=== PATIENT | female | born 1975 | race Caucasian/White ===

== ENCOUNTER 2020-04-01 08:15 | Outpatient (REF) | payer OTHER, SELFPAY ==
[2020-04-01 08:40] LABS: COVID-19 Test Negative (Negative); IDNOW Serial# 55D5AD1C
== END 2020-04-01 08:16 | disposition home or self-care (01) ==
LOC: HO.EMPCOV 08:15
PROVIDERS: PCP Family Medicine; Visit Provider Internal Medicine
DX: Z20.828 Contact with and (suspected) exposure to other viral communicable diseases (principal)
CPT/HCPCS: 87635; C9803

== ENCOUNTER 2020-04-18 12:27 | Outpatient (REF) | payer OTHER, SELFPAY ==
[2020-04-18 14:17] LABS: COVID-19 Test Negative (Negative)
== END 2020-04-18 12:28 | disposition home or self-care (01) ==
LOC: HO.EMPCOV 12:27
PROVIDERS: PCP Family Medicine; Visit Provider Internal Medicine
DX: Z20.828 Contact with and (suspected) exposure to other viral communicable diseases (principal)
CPT/HCPCS: 87635; C9803

== ENCOUNTER 2020-04-25 08:21 | Outpatient (REF) | payer OTHER, SELFPAY ==
[2020-04-25 08:44] LABS: COVID-19 Test Negative (Negative)
== END 2020-04-25 08:22 | disposition home or self-care (01) ==
LOC: HO.EMPCOV 08:21
PROVIDERS: PCP Family Medicine; Visit Provider Internal Medicine
DX: Z20.828 Contact with and (suspected) exposure to other viral communicable diseases (principal)
CPT/HCPCS: 87635; C9803

== ENCOUNTER 2020-05-05 08:05 | Outpatient (REF) | payer OTHER, SELFPAY ==
[2020-05-05 08:22] LABS: COVID-19 Test Negative (Negative); IDNOW Serial# 55D5AD1C
== END 2020-05-05 08:06 | disposition home or self-care (01) ==
LOC: HO.EMPCOV 08:05
PROVIDERS: Visit Provider Internal Medicine
DX: Z20.828 Contact with and (suspected) exposure to other viral communicable diseases (principal)
CPT/HCPCS: 36415; 87635; C9803

== ENCOUNTER 2020-05-05 10:14 | Outpatient (REF) | payer OTHER, SELFPAY ==
[2020-05-05 12:17] LABS: Influenza A PCR NEGATIVE (Negative); Influenza B PCR NEGATIVE (Negative); Resp Syncy Virus RNA Qual PCR NEGATIVE (Negative); SARS COV2 PCR INHOUSE NEGATIVE (Negative)
== END 2020-05-05 10:15 | disposition home or self-care (01) ==
LOC: HO.LAB 10:14
PROVIDERS: Visit Provider Nurse Practitioner Family
DX: J06.9 Acute upper respiratory infection, unspecified (principal); Z20.822 Contact with and (suspected) exposure to COVID-19
CPT/HCPCS: 0241U; 36415

== ENCOUNTER 2020-07-15 11:30 | Outpatient (REF) | payer OTHER, SELFPAY ==
[2020-07-15 13:09] LABS: COVID-19 Test Negative (Negative); IDNOW Serial# 55D5AD1C
== END 2020-07-15 11:31 | disposition home or self-care (01) ==
LOC: HO.EMPCOV 11:30
PROVIDERS: Visit Provider Internal Medicine
DX: Z20.822 Contact with and (suspected) exposure to COVID-19 (principal)
CPT/HCPCS: 36415; 87635; C9803

== ENCOUNTER 2020-08-25 08:25 | Outpatient (REF) | payer OTHER, SELFPAY ==
[2020-08-25 09:40] LABS: COVID-19 Test Negative (Negative)
== END 2020-08-25 08:26 | disposition home or self-care (01) ==
LOC: HO.EMPCOV 08:25
PROVIDERS: Visit Provider Internal Medicine
DX: Z20.822 Contact with and (suspected) exposure to COVID-19 (principal)
CPT/HCPCS: 36415; 87635; C9803

== ENCOUNTER 2020-08-26 13:25 | Outpatient (REF) | payer OTHER, SELFPAY ==
--- NOTE | ~2020-08-26 | XR_ITS ---
EXAMINATION: XR CHEST CLINICAL INFORMATION: Viral infection COMPARISON: Previous chest x-ray May 2015 TECHNIQUE: 2 views of the chest were obtained. FINDINGS: The cardiac and mediastinal contours are normal. The lungs are clear. There is no pleural effusion or pneumothorax. There is a mild thoracolumbar scoliosis. XR/XR chest 2V IMPRESSION: Unremarkable examination.
[2020-08-26 16:19] LABS: MANUAL DIFF FLAG NO
[2020-08-26 16:31] LABS: Basophils Percent Auto 0.4 % (0-2); Eosinophils Absolute Auto 0.3 X10*3/uL (0.0-0.4); Eosinophils Percent Auto 2.7 % (0-4); Hematocrit 44.2 % (37-47); Hemoglobin 15.2 g/dl (12.0-16.0); Imm Gran Abs Auto 0.05 X10*3/uL (0.00-0.03); Imm Gran Pct Auto 0.5 % (0.0-0.4); Lymphocytes Absolute Auto 2.1 X10*3/uL (1.2-4.9); Mean Corpuscular HGB Conc 34.4 g/dl (31.0-35.0); Mean Corpuscular Hemoglobin 33.9 pg (27.0-33.0); Mean Corpuscular Volume 98.4 fL (80-98); Mean Platelet Volume 12.2 fL (9.4-12.3); Monocytes Absolute Auto 0.7 X10*3/uL (0.1-1.2); Monocytes Percent Auto 7.2 % (2-11); Neutrophils Absolute Auto 6.4 X10*3/uL (2.0-8.3); Neutrophils Percent Auto 67.2 % (45-73); Platelet Count 296 X10*3/uL (160-400); Red Blood Count 4.49 X10*6/uL (4.20-5.50); Red Cell Distribution Width 12.2 % (11.0-16.0); White Blood Count 9.6 X10*3/uL (4.8-10.8)
[2020-08-26 17:00] LABS: Alanine Aminotransferase 42 U/L (0-31); Albumin Level 4.5 g/dL (3.5-5.0); Alkaline Phosphatase 109 U/L (39-117); Anion Gap 15 (12-20); Aspartate Amino Transferase 32 U/L (5-31); Bilirubin Total 0.7 mg/dL (0.0-1.0); Blood Urea Nitrogen 8 mg/dL (9-16); Calcium 9.8 mg/dL (8.4-10.2); Carbon Dioxide 25 mmol/L (22-29); Chloride 104 mmol/L (96-108); Estimated Glomerular Filt Rate > 60; Glucose Random 82 mg/dL (60-115); Potassium 4.3 mmol/L (3.3-5.1); Sodium 140 mmol/L (135-145); Total Protein 7.2 g/dL (6.5-8.0)
[2020-08-26 17:20] LABS: TSH reflex Free T4 1.25 uIU/mL (0.32-4.0)
[2020-08-27 08:49] LABS: Monotest Negative (Negative)
== END 2020-08-26 13:26 | disposition home or self-care (01) ==
LOC: HO.HMGCX 13:25
PROVIDERS: PCP Family Medicine; Visit Provider Hospitalist
DX: Z20.822 Contact with and (suspected) exposure to COVID-19 (principal); B34.9 Viral infection, unspecified
CPT/HCPCS: 36415; 71046; 80053; 84443; 85025; 86308; U0003; U0005

== ENCOUNTER 2020-11-03 08:35 | Outpatient (REF) | payer OTHER, SELFPAY ==
--- NOTE | ~2020-11-03 | XR_ITS ---
EXAMINATION: XR CHEST CLINICAL INFORMATION: J06.9 - Acute upper respiratory infection, unspecified COMPARISON: Chest radiographs 08/26/2020, 06/10/2015 TECHNIQUE: 2 views of the chest were obtained. FINDINGS: The lungs are clear. The vascularity is normal. There is no airspace consolidation or groundglass opacity. The costophrenic sulci are well-defined. The heart is normal in size. The hilar and mediastinal contours are unremarkable. There is gentle levocurvature again noted lower thoracic spine. XR/XR chest 2V IMPRESSION: Unremarkable examination.
== END 2020-11-03 08:36 | disposition home or self-care (01) ==
LOC: HO.HMGCX 08:35
PROVIDERS: PCP Family Medicine; Visit Provider Nurse Practitioner Family
DX: J06.9 Acute upper respiratory infection, unspecified (principal)
CPT/HCPCS: 71046

== ENCOUNTER 2020-11-15 12:28 | Outpatient (REF) | payer OTHER, SELFPAY ==
[2020-11-16 13:47] LABS: Immunoglobulin A 246 mg/dL (47-310)
[2020-11-16 17:16] LABS: Transglutaminase Ab IgG 1 U/mL; Transglutaminase IgA 1 U/mL
[2020-11-17 17:21] LABS: Gliadin Deamidated IgA Ab 3 Units; Gliadin Deamidated IgG Ab 1 Units
[2020-11-20 11:35] LABS: Endomysial IgA Antibody Negative (Negative)
== END 2020-11-15 12:29 | disposition home or self-care (01) ==
LOC: HO.LAB 12:28
PROVIDERS: PCP Family Medicine; Visit Provider Internal Medicine
DX: K58.0 Irritable bowel syndrome with diarrhea (principal)
CPT/HCPCS: 36415; 82784; 83516; 86255; 86256

== ENCOUNTER 2020-11-22 09:43 | Outpatient (REF) | payer OTHER, SELFPAY ==
--- NOTE | ~2020-11-22 | US_ITS ---
EXAMINATION: US ABDOMEN COMPLETE CLINICAL INFORMATION: Generalized abdominal discomfort. COMPARISON: CT abdomen and pelvis 05/18/2019. TECHNIQUE: Real-time imaging of the abdominal viscera. FINDINGS: PANCREAS: Normal. ABDOMINAL AORTA: The proximal, mid, and distal segments are normal in caliber. INFERIOR VENA CAVA: Visualized portions are normal. LIVER: The liver is normal in size. The liver contour is normal. Liver echotexture is increased probably representing fatty infiltration. No focal hepatic lesion. There is no intrahepatic biliary duct dilatation seen. GALLBLADDER: The gallbladder is physiologically distended. Multiple mobile gallstones are present. No evidence of gallbladder wall thickening or pericholecystic fluid. COMMON BILE DUCT: Normal in caliber measuring 0.4 cm in diameter. RIGHT KIDNEY: Normal. No hydronephrosis. No renal calculi or focal parenchymal lesions. The kidney measures 10.2 cm in maximum dimension. LEFT KIDNEY: Normal. No hydronephrosis. No renal calculi or focal parenchymal lesions. The kidney measures 9.5 cm in maximum dimension. SPLEEN: Normal. The spleen measures 9.8 cm in maximum dimension. FREE FLUID: None. US/US abdomen complete IMPRESSION: Echogenic liver probably representing fatty infiltration. Gallstones.
== END 2020-11-22 09:44 | disposition home or self-care (01) ==
LOC: HO.HMGCX 09:43
PROVIDERS: PCP Family Medicine; Visit Provider Internal Medicine
DX: R10.84 Generalized abdominal pain (principal)
CPT/HCPCS: 76700

== ENCOUNTER 2020-12-16 09:58 | Day surgery (SDC) | payer OTHER, SELFPAY ==
--- NOTE | 2020-12-15 09:18 | P.CONAN_ITS ---
Documented by User: Basilia Padilla NP 12/15/20 09:18 HPI - Anesthesia Eval Consult details Narrative: 45yo F for Upper Endoscopy and Colonoscopy [facility] Active Problems Active Problems: All Active Problems (Updated 12/08/20 @ 14:24 by Teresita Robbins, BETSY) Upper respiratory infection (Acute) Rash and nonspecific skin eruption (Acute) Viral syndrome (Acute) Past Medical History Medical History Anxiety Asthma GERD (gastroesophageal reflux disease) Helicobacter pylori antibody positive Urinary incontinence Surgical History Surgical History History of cryosurgery History of tubal ligation Social History Social History (Updated 12/08/20 @ 14:25 by Teresita Robbins, BETSY) Patient Tobacco Use Status: Current everyday Tobacco user Tobacco use type: Cigarette Cigarettes Per Day: 10 Advance Directives: No Advance Directives Information Provided: Yes Meds Allergies Allergy/AdvReac Type Severity Reaction Status Date / Time No Known Allergies Allergy Unknown Verified 12/16/20 10:32 [No Known Allergies*] Home Medications Medication Instructions Recorded Confirmed Last Taken Type cholecalciferol (vitamin D3) 25 1 cap PO DAILY 12/08/20 12/08/20 Unknown History mcg (1,000 unit) capsule (Vitamin D3) clonazepam 0.5 mg tablet 1 tab PO DAILY 12/08/20 12/08/20 Unknown History fluoxetine 20 mg capsule 1 cap PO QAM 12/08/20 12/08/20 Unknown History omeprazole 20 mg capsule,delayed 1 cap PO DAILY 12/08/20 12/08/20 Unknown History release Exam Exam Date and Time: December 15, 2020 0918 Assessment and Plan Assessment Anesthesia Assessment: Chart Reviewed Documented by User: Cecelia Woodward MD 12/16/20 10:38 [facility] Past Medical History Medical History Anxiety Asthma GERD (gastroesophageal reflux disease) Helicobacter pylori antibody positive Urinary incontinence Family History Family history of problems with anesthesia: No Surgical History Surgical History History of cryosurgery History of tubal ligation History of Problems with Anesthesia: No Social History Social History (Updated 12/08/20 @ 14:25 by Terseita Robbins RN) Patient Tobacco Use Status: Current everyday Tobacco user Tobacco use type: Cigarette Cigarettes Per Day: 10 Advance Directives: No Advance Directives Information Provided: Yes Meds Allergies Allergy/AdvReac Type Severity Reaction Status Date / Time No Known Allergies Allergy Unknown Verified 12/16/20 10:32 [No Known Allergies*] Home Medications Medication Instructions Recorded Confirmed Last Taken Type cholecalciferol (vitamin D3) 25 1 cap PO DAILY 12/08/20 12/08/20 Unknown History mcg (1,000 unit) capsule (Vitamin D3) clonazepam 0.5 mg tablet 1 tab PO DAILY 12/08/20 12/08/20 Unknown History fluoxetine 20 mg capsule 1 cap PO QAM 12/08/20 12/08/20 Unknown History omeprazole 20 mg capsule,delayed 1 cap PO DAILY 12/08/20 12/08/20 Unknown History release Exam Airway Mallampati Class: II TM Dist: >3cm Neck ROM: Full Heart: rrr Lungs: cta Assessment and Plan Assessment Anesthesia Assessment: Anesthesia Plan Discussed and Chart Reviewed Final Anesthetic Review Family History of Problems with Anesthesia: No History of Problems with Anesthesia: No NPO: Yes ASA Class: II Final Preanesthetic Review: No Changes in Pt Med Stat and Consent Obtained/Reviewed Patient Risk: Intermediate Procedure Risk: Intermediate Anesthetic Plan Anesthetic Plan: MAC: Disposition: Standard PACU
[2020-12-16 10:32] VITALS: BP 131/84; PULSE 80; RESP 16; TEMP 36.5; O2SAT 98
[2020-12-16 10:41] VITALS: BMI 30.1
[2020-12-16] MEDS: Lactated Ringers 1,000 ML 100 ML IVCONT (10:46)
[2020-12-16 12:40] VITALS: BP 118/77; PULSE 78; RESP 16; TEMP 36.4; O2SAT 98
--- NOTE | 2020-12-16 12:45 | P.BOP_ITS ---
Brief Operative Note Date of Service: 12/16/20 Pre-op diagnosis: GERD, diarrhea Post-op diagnosis: other (Hiatal hernia, gastritis,internal hemorrhoids) Procedure: EGD with biopsies and Colonoscopy to the cecum with biopsies Surgeon: Fabio Cai Anesthesia: MAC Was an Plant Maintenance Engineer used for this Procedure?: No Estimated blood loss (mL): 5.0 Pathology: other (A. Descending duodenum B. Gastric antrum C. EG Junction at 35cm D. Ascending colon E. Descending colon) Condition: stable Disposition: PACU
[2020-12-16 12:55] VITALS: BP 123/81; PULSE 72; RESP 18; TEMP 36.7; O2SAT 100
--- NOTE | 2021-01-05 16:32 | OP_ITS ---
SURGEON: Fabio Cai MD INDICATIONS: The patient presents for evaluation of gastroesophageal reflux, abdominal discomfort, and irregular bowel movements with associated diarrhea. Full consent has been obtained from her for both procedures, including risks of bleeding and perforation. PREOPERATIVE DIAGNOSIS: POSTOPERATIVE DIAGNOSIS: PROCEDURE PERFORMED: Esophagogastroduodenoscopy with biopsies and colonoscopy to cecum and terminal ileum with biopsies. ESTIMATED BLOOD LOSS: COMPLICATIONS: ANESTHESIA: Monitored anesthesia care. ASSISTANTS: SPECIMENS: PREOPERATIVE DIAGNOSES: Gastroesophageal reflux, abdominal discomfort, irregular bowel movements with associated diarrhea. POSTOPERATIVE DIAGNOSES: Gastroesophageal reflux, abdominal discomfort, irregular bowel movements with associated diarrhea, hiatal hernia, rule out celiac disease, mild gastritis, rule out microscopic colitis, internal hemorrhoids. DESCRIPTION OF PROCEDURE: The patient was placed in the left lateral decubitus position. The Olympus video gastroscope was passed in the posterior oropharynx and upper esophagus under direct vision. The scope was passed slowly into the distal esophagus. The gastroesophageal junction appeared at 35 cm. There was some slight irregularity consistent with chronic reflux, but no evidence of esophagitis nor any definitive evidence of Andersen's mucosa. The scope entered into the stomach. There was a small hiatal hernia. The scope was advanced to pylorus and the duodenum was cannulated to the descending portion. The duodenum including the bulb was carefully inspected and appeared normal. Biopsies were obtained from the second and third portions of duodenum. The scope was withdrawn back into the stomach. The gastric antrum had some mild changes of erythema and edema in the pre-pyloric antrum. There was good peristalsis. Biopsies were obtained. There was no ulceration nor mass. The scope was retroflexed visualizing the proximal stomach carefully, which appeared normal, without any sign of mass or ulceration. The scope was straightened out and withdrawn back into the esophagus. Biopsies were obtained at the EG junction at 35 cm. Proximal to that, the esophageal mucosa appeared normal. The scope was withdrawn from the patient. She was turned around for colonoscopy. The digital rectal exam revealed no abnormalities. The Olympus video pediatric colonoscope was entered into the rectum and advanced easily to the cecum. Once in the cecum, I did identify normal-appearing cecal pouch with appendiceal orifice and a normal-appearing ileocecal valve. The terminal ileum was cannulated and appeared normal. The scope was withdrawn back in the colon. The entire cecum and ileocecal valve appeared normal. The scope was slowly withdrawn assessing all mucosal surfaces carefully. Preparation was excellent. I did not visualize any sign of polyps, colitis, nor angiodysplasia. Random biopsies were obtained in the ascending and descending colon. In the rectum, scope was retroflexed visualizing internal hemorrhoids, but no other pathology. The rectal mucosa appeared normal. The scope was straightened out and withdrawn from the patient. She tolerated the procedures well and was returned to the recovery area in stable condition. IMPRESSION: 1. Hiatal hernia, gastroesophageal reflux. 2. Mild gastritis. 3. Rule out celiac disease. 4. Rule out microscopic colitis. 5. Internal hemorrhoids. PLAN: The results of the biopsies will be checked. She has been advised to continue her omeprazole for reflux and dicyclomine as needed for irritable bowel symptoms and abdominal cramps. Even if H pylori is present on the gastric biopsies, I would not necessarily treat that at this time. She does have an appointment next week to see Dr. Bustillos about her gallstones and to get his opinion as to whether she should have a cholecystectomy in regard to intermittent abdominal discomfort as well. She was advised to see me in the fall for a followup visit. She was advised not to use any aspirin and NSAIDs for 1 week. This has been discussed with her . MD JHOAN Madsen/HERSON / [id number]
== END 2020-12-16 13:35 | disposition home or self-care (01) ==
PROVIDERS: PCP Family Medicine; Visit Provider Internal Medicine
PROC: (CPT 45380; principal; 2020-12-16 11:20)
DX: K58.0 Irritable bowel syndrome with diarrhea (principal); K64.8 Other hemorrhoids; K21.9 Gastro-esophageal reflux disease without esophagitis; K29.50 Unspecified chronic gastritis without bleeding; K44.9 Diaphragmatic hernia without obstruction or gangrene; J45.909 Unspecified asthma, uncomplicated; Z79.899 Other long term (current) drug therapy; F17.210 Nicotine dependence, cigarettes, uncomplicated; Z98.51 Tubal ligation status
CPT/HCPCS: 45380; 43239; 88305; 88342

== ENCOUNTER → 2020-12-21 14:56 | Outpatient (BNVA) | payer OTHER, SELFPAY | PROVIDERS: PCP Family Medicine; Referring Provider Family Medicine; Visit Provider Surgery ==

== ENCOUNTER → 2021-06-22 09:56 | Outpatient (BNVA) | payer OTHER, SELFPAY | PROVIDERS: PCP Family Medicine; Referring Provider Family Medicine; Visit Provider Surgery ==

== ENCOUNTER 2021-07-28 08:01 | Day surgery (SDC) | payer OTHER, SELFPAY ==
[2021-07-21 19:39] VITALS: BMI 30.1
--- NOTE | 2021-07-26 14:16 | P.CONAN_ITS ---
Documented by User: Basilia Padilla NP 07/26/21 14:16 HPI - Anesthesia Eval Consult details Narrative: 46yo F for Cholecystectomy Laparoscopic, Poss Open PMFSH Active Problems Active Problems: All Active Problems (Updated 07/21/21 @ 19:37 by Eleanor De Oliveira RN) Upper respiratory infection (Acute) Rash and nonspecific skin eruption (Acute) Viral syndrome (Acute) Gallstones (Acute) Past Medical History Medical History (Updated 07/21/21 @ 19:37 by Eleanor De Oliveira, RN) Anxiety Asthma Back pain Depression Gallstones GERD (gastroesophageal reflux disease) Helicobacter pylori antibody positive Urinary incontinence Family History Family history of problems with anesthesia: No Surgical History Surgical History History of cryosurgery History of tubal ligation History of Problems with Anesthesia: No Social History Social History Patient Tobacco Use Status: Current everyday Tobacco user Tobacco use type: Cigarette Cigarette Packs Per Day: 0.5 Cigarettes Per Day: 10.0 Years Smoked: 30 Smoked in Last 30 Days: Yes Use of substances other than those prescribed or required for medical reasons: No Are you DNR?: No Advance Directives: No Advance Directives Information Provided: No Advance Directives on File: No Recently lost weight without trying: No Nutrition Risks: No Nutritional Risk Patient : No Meds Allergies Allergy/AdvReac Type Severity Reaction Status Date / Time No Known Allergies Allergy Unknown Verified 06/22/21 10:07 [No Known Allergies*] Home Medications Medication Instructions Recorded Confirmed Last Taken Type cholecalciferol (vitamin D3) 25 1 cap PO DAILY 12/08/20 07/21/21 Unknown History mcg (1,000 unit) capsule (Vitamin D3) clonazepam 0.5 mg tablet 1 tab PO DAILY 12/08/20 07/21/21 07/28/21 History fluoxetine 20 mg capsule 1 cap PO QAM 12/08/20 07/21/21 Unknown History omeprazole 20 mg capsule,delayed 1 cap PO DAILY 12/08/20 07/21/21 Unknown History release metronidazole 500 mg tablet 1 tab PO BID 07/28/21 07/28/21 07/28/21 History Exam Exam Date and Time: July 26, 2021 141 Height,Weight and Vital Signs: Height 5 ft 3 in Weight 77.111 kg Assessment and Plan Assessment Anesthesia Assessment: Chart Reviewed Final Anesthetic Review Family History of Problems with Anesthesia: No History of Problems with Anesthesia: No Documented by User: Donna Paz MD 07/28/21 08:29 PENDING SALE TO [facility] Past Medical History Medical History (Updated 07/21/21 @ 19:37 by Eleanor De Oliveira RN) Anxiety Asthma Back pain Depression Gallstones GERD (gastroesophageal reflux disease) Helicobacter pylori antibody positive Urinary incontinence Surgical History Surgical History History of cryosurgery History of tubal ligation Social History Social History Patient Tobacco Use Status: Current everyday Tobacco user Tobacco use type: Cigarette Cigarette Packs Per Day: 0.5 Cigarettes Per Day: 10.0 Years Smoked: 30 Smoked in Last 30 Days: Yes Use of substances other than those prescribed or required for medical reasons: No Are you DNR?: No Advance Directives: No Advance Directives Information Provided: No Advance Directives on File: No Recently lost weight without trying: No Nutrition Risks: No Nutritional Risk Patient : No Meds Allergies Allergy/AdvReac Type Severity Reaction Status Date / Time No Known Allergies Allergy Unknown Verified 06/22/21 10:07 [No Known Allergies*] Home Medications Medication Instructions Recorded Confirmed Last Taken Type cholecalciferol (vitamin D3) 25 1 cap PO DAILY 12/08/20 07/21/21 Unknown History mcg (1,000 unit) capsule (Vitamin D3) clonazepam 0.5 mg tablet 1 tab PO DAILY 12/08/20 07/21/21 07/28/21 History fluoxetine 20 mg capsule 1 cap PO QAM 12/08/20 07/21/21 Unknown History omeprazole 20 mg capsule,delayed 1 cap PO DAILY 12/08/20 07/21/21 Unknown History release metronidazole 500 mg tablet 1 tab PO BID 07/28/21 07/28/21 07/28/21 History Exam Airway Mallampati Class: I TM Dist: >3cm Neck ROM: Full Assessment and Plan Assessment Anesthesia Assessment: Anesthesia Plan Discussed Final Anesthetic Review NPO: Yes ASA Class: II Final Preanesthetic Review: No Changes in Pt Med Stat, Meds/Allgs Chart Revie wed, Consent Obtained/Reviewed and Anes Risks/Benef Reviewed Patient Risk: Intermediate Procedure Risk: Intermediate Anesthetic Plan Anesthetic Plan: GA Disposition: Standard PACU
[2021-07-28] VITALS (12 sets, daily range): BP systolic 100–143; BP diastolic 69–95; PULSE 66–95; RESP 14–18; TEMP 36.2–36.9; O2SAT 93–100
[2021-07-28] MEDS: Lactated Ringers 1,000 ML 100 ML IVCONT (08:40)
--- NOTE | 2021-07-28 08:54 | MHC.SHP ---
Pre-Procedural Eval Section A Date of Service: 07/28/21 Section B Chief Complaint: Gallstones Details of Present Illness: Breast had periodic right upper quadrant pain with gallstones Relevant Family History (Specify if Yes): No Relevant Social History: None Present Medications: see Short Stay Collaborative assessment Medical History: No relevant PMH History of Previous Operations: No relevant previous surgery Allergies: Allergies Allergy/AdvReac Type Severity Reaction Status Date / Time No Known Allergies Allergy Unknown Verified 06/22/21 10:07 [No Known Allergies*] Review of Systems Sugical H&P ROS: Negative: Constitution, Cardiovascular, Respiratory, Neurological, Psychiatric, Hem-Onc, Allergic/Immunologic, Gastrointestinal, Genitourinary, Musculoskeletal, Integumentary, Endocrine and Eyes/Ears/Nose/Throat Exam Surgical H&P Exam: Normal: HEENT, Normal: Heart, Normal: Lungs, Normal: Extremities, Normal: Abdomen, Normal: Skin and Normal: Neurological Plan Diagnosis/Plan: Unchanged I have reviewed the history and physical and performed a pertinent physical examination on my patient. No changes have occurred unless specified.
--- NOTE | 2021-07-28 09:56 | W.PM.OPN ---
Operative Note Operative Note Date of Service: 07/28/21 Narrative: Preop diagnosis: Symptomatic gallstones Postop diagnosis the same Procedure: Laparoscopic cholecystectomy Surgeon: Isaac Bustillos MD printing bindery assistant: BENITO Hernandez Patient 46 year female with known gallstones, with periodic right upper quadrant pain and tenderness. She therefore wanted to proceed with cholecystectomy.She understood the technique of laparoscopic cholecystectomy and possible open cholecystectomy. She was aware of the risks, benefits, and alternatives. She was brought to the operating room placed supine on table under general anesthesia via endotracheal tube. The abdomen was prepped and draped in the usual sterile fashion. A surgical time-out was done. The patient received Cefotan 2 g IV preoperatively. I made a short incision on the supraumbilical margin using a blade 15. This was carried down through the full-thickness of the skin subcutaneous fat down to the fascia. The fascia was incised. The peritoneum was entered. Through this incision a Jayce port was introduced. Pneumoperitoneum was introduced to a pressure of 15 mmHg. From here on the rest of procedure was done under vision with the laparoscope. With laparoscopic visualization, I placed a 5/12 mm port in the epigastric area below the subcostal margin. 5 mm ports introduced a small incisions below the subcostal margin along the anterior axillary line and the midclavicular line. Graspers were placed through these working ports. The patient was placed in head-up and up [id number] position. The gallbladder was seen and this appeared to be supple and not inflamed. I applied a grasper at the fundus of the gallbladder and this was used to retract the gallbladder cephalad. I applied another grasper towards the infundibulum and this was used to retract the gallbladder laterally. At this point therefore the gallbladder was being retracted in a cephalad and lateral fashion to put the cystic duct on stretch. I gently dissected fatty areolar tissue at the neck with the [place] dissector until was able to visualize the cystic duct. I continued to define the cystic duct with blunt dissection with the [place] dissector. I was able to then early define its confluence with the neck of the gallbladder. Clips were applied with 2 clips being applied distally the cystic duct was transected between clips. Cystic artery was seen to be running parallel and this was gently dissected. Clips were applied and the cystic artery was transected vent clips as well. I then used the electrocautery spatula to divide across the hilum all the way to the interface of the gallbladder with the liver bed. I incised the peritoneum of the liver bed and define a plane of dissection between the gallbladder wall and the liver using combination of blunt dissection with the tip of the spatula and electrocautery. I proceeded to separate the gallbladder along this well defined plane of dissection although the fundus until the entire gallbladder was completely . There was retrieved through an endobag through the umbilical incision. I reinserted all ports and re-insufflated I irrigated the subhepatic space because of some bile leak earlier from a tear on the gallbladder wall. I then observed all 4 quadrants. There were no other lesions or any pathology seen. There was of no evidence of any bowel injury. Once hemostasis was ensured, I desufflated the port sites. I removed all ports under vision with the laparoscope. The umbilical port was removed last. The fascia of the umbilical incision was closed with [id number] Dexon 0 stitch. Skin closure was achieved on all incisions using Dexon 4-0 subcuticular running sutures. Steri-Strips and dressings were applied. All incisions were infiltrated with Marcaine 0.5% for postop analgesia. The procedure was then completed The patient tolerated procedure well. There were no complication noted. Initial and final counts of sponges and instruments were correct. Estimated blood loss was about 20 cc. The patient was extubated without difficulty and transferred to the recovery room with stable vital signs.
[2021-07-28] MEDS: oxyCODONE HCl Immed Release 5 MG TABLET 10 MG PO (10:37)
[2021-07-28] MEDS: fentaNYL citrate/PF 100 MCG/2 ML VIAL 50 MCG IVPUSH ×2 (10:40→10:45)
== END 2021-07-28 12:20 | disposition home or self-care (01) ==
PROVIDERS: PCP Family Medicine; Visit Provider Surgery
PROC: 0FT44ZZ Resection of Gallbladder, Percutaneous Endoscopic Approach (ICD-10-PCS; CPT 47562; principal; 2021-07-28 09:40)
DX: K80.10 Calculus of gallbladder with chronic cholecystitis without obstruction (principal); J45.909 Unspecified asthma, uncomplicated; F17.210 Nicotine dependence, cigarettes, uncomplicated
CPT/HCPCS: 47562; 88304; J1100; J2250; J2370; J2405; J3010

== ENCOUNTER → 2021-08-07 11:11 | Outpatient (BNVA) | payer OTHER, SELFPAY | PROVIDERS: PCP Family Medicine; Referring Provider Family Medicine; Visit Provider Surgery | DX: Z13.89 Encounter for screening for other disorder (principal) ==

== ENCOUNTER 2022-03-02 08:04 | Outpatient (REF) | payer OTHER, SELFPAY ==
--- NOTE | 2022-03-02 | PFT_ITS ---
INDICATION: Asthma. SPIROMETRY: FEV1 to FVC 86% with an FEV1 of 2.61 L, which is 95% predicted; an FVC of 3.05 L, which is 90% predicted. No significant response to bronchodilators noted. Maximum voluntary ventilation 87% predicted. LUNG VOLUMES: Total lung capacity 87% predicted with an expiratory reserve volume of 36% predicted. DIFFUSION CAPACITY: DLCO 74% predicted. INTERPRETATION: No obstructive nor restrictive ventilatory defects identified. There was a trend response to bronchodilators noted, although not significant. The patient does have some small airways disease, which could be attributed to her underlying history of asthma. Maximum voluntary ventilation is within normal limits. Lung volumes are within normal limits except for decrease in the expiratory reserve volume secondary to likely of the elevated BMI. The patient does have a mild diffusion impairment which should be corrected for hemoglobin. Clinical correlation is warranted. MD BLAISE Moore/HERSON / [id number]
--- NOTE | ~2022-03-02 | MM_ITS ---
EXAMINATION: MM SCREENING DIGITAL BREAST TOMOSYNTHESIS, BILATERAL CLINICAL INFORMATION: Screening. Asymptomatic. COMPARISON: Mammography: 03/24/2018, 02/20/2018, 01/05/2015 TECHNIQUE: Digital breast tomosynthesis is performed in both the craniocaudal and mediolateral oblique views along with computer-aided detection (CAD). Synthesized 2D images are generated from the tomosynthesis. Additional right CC view is provided. FINDINGS: There are scattered areas of fibroglandular density (ACR BI-RADS breast composition Category b). Parenchymal pattern is similar to prior studies. There is no developing density or architectural abnormality. The axilla and skin contours are unremarkable. No significant changes. MM/MM tomosynthesis screening BI IMPRESSION: No mammographic evidence of malignancy. ASSESSMENT: BI-RADS 1: Negative RECOMMENDATION: Routine annual mammography screening. This patient's information was entered into a reminder system with a target due date for their next mammogram.
== END 2022-03-02 08:05 | disposition home or self-care (01) ==
LOC: HO.RESP 08:04
PROVIDERS: Visit Provider Family Medicine
DX: Z12.31 Encounter for screening mammogram for malignant neoplasm of breast (principal); J45.20 Mild intermittent asthma, uncomplicated; F17.200 Nicotine dependence, unspecified, uncomplicated
CPT/HCPCS: 77063; 77067; 94060; 94727; 94729

== ENCOUNTER 2022-05-29 09:52 | Outpatient (REF) | payer OTHER, SELFPAY ==
--- NOTE | ~2022-05-29 | XR_ITS ---
EXAMINATION: X-RAY RIGHT SHOULDER AND LEFT ELBOW CLINICAL INFORMATION: Pain. COMPARISON: None. TECHNIQUE: 4 view right shoulder and 3 view left elbow. FINDINGS: Views of the right shoulder do not demonstrate any evidence of acute fracture or dislocation. No calcific tendinitis is seen. No significant degenerative change of the acromioclavicular joint or glenohumeral joint is seen. No widening of the coracoclavicular space is noted. There appears be a 3 mm bone island within the acromium. 3 views of the left elbow do not demonstrate any evidence of acute fracture or dislocation. No destructive bony lesions identified. No left elbow effusion is noted. XR/XR shoulder RT min 2V IMPRESSION: No significant bony abnormalities of the right shoulder or left elbow identified.
--- NOTE | ~2022-05-29 | XR_ITS ---
EXAMINATION: X-RAY RIGHT SHOULDER AND LEFT ELBOW CLINICAL INFORMATION: Pain. COMPARISON: None. TECHNIQUE: 4 view right shoulder and 3 view left elbow. FINDINGS: Views of the right shoulder do not demonstrate any evidence of acute fracture or dislocation. No calcific tendinitis is seen. No significant degenerative change of the acromioclavicular joint or glenohumeral joint is seen. No widening of the coracoclavicular space is noted. There appears be a 3 mm bone island within the acromium. 3 views of the left elbow do not demonstrate any evidence of acute fracture or dislocation. No destructive bony lesions identified. No left elbow effusion is noted. XR/XR elbow LT min 3V IMPRESSION: No significant bony abnormalities of the right shoulder or left elbow identified.
[2022-05-29 11:08] LABS: Erythrocyte Sedimentation Rate 4 MM/HR (0-20)
[2022-05-29 11:14] LABS: C Reactive Protein 0.56 mg/dL (< or = 0.50); Rheumatoid Factor < 13.0 IU/mL (<15.0)
[2022-05-31 15:04] LABS: Anti Nuclear Antibody Screen NEGATIVE (NEGATIVE)
== END 2022-05-29 09:53 | disposition home or self-care (01) ==
LOC: HO.LAB 09:52
PROVIDERS: PCP Family Medicine; Visit Provider Family Medicine
DX: M25.511 Pain in right shoulder (principal); M25.522 Pain in left elbow
CPT/HCPCS: 36415; 73030; 73080; 85652; 86038; 86039; 86140; 86431

== ENCOUNTER 2023-08-05 10:46 | Outpatient (REF) | payer OTHER, SELFPAY ==
[2023-08-05 11:37] LABS: MANUAL DIFF FLAG NO
[2023-08-05 11:49] LABS: Basophils Percent Auto 0.5 % (0-2); Eosinophils Absolute Auto 0.2 X10*3/uL (0.0-0.4); Eosinophils Percent Auto 2.7 % (0-4); Hematocrit 42.6 % (37.0-47.0); Hemoglobin 14.8 g/dl (12.0-16.0); Imm Gran Abs Auto 0.02 X10*3/uL (0.00-0.03); Imm Gran Pct Auto 0.2 % (0.0-0.4); Lymphocytes Absolute Auto 1.6 X10*3/uL (1.2-4.9); Mean Corpuscular HGB Conc 34.7 g/dl (31.0-35.0); Mean Corpuscular Hemoglobin 33.4 pg (27.0-33.0); Mean Corpuscular Volume 96.2 fL (80.0-98.0); Mean Platelet Volume 11.9 fL (9.4-12.3); Monocytes Absolute Auto 0.5 X10*3/uL (0.1-1.2); Monocytes Percent Auto 6.5 % (2-11); Neutrophils Absolute Auto 5.7 x10*3/uL (2.0-8.3); Neutrophils Percent Auto 70.1 % (45-73); Platelet Count 280 X10*3/uL (160-400); Red Blood Count 4.43 X10*6/uL (4.20-5.50); Red Cell Distribution Width 12.1 % (11.0-16.0); White Blood Count 8.1 X10*3/uL (4.8-10.8)
[2023-08-05 11:54] LABS: Estimated Average Glucose 94 mg/dL; Hemoglobin A1c % 4.9 % (<6.0)
[2023-08-05 12:51] LABS: Alanine Aminotransferase 33 U/L (0-31); Albumin Level 4.3 g/dL (3.5-5.0); Alkaline Phosphatase 95 U/L (39-117); Anion Gap 12 (12-20); Aspartate Amino Transferase 26 U/L (5-31); Bilirubin Total 0.7 mg/dL (0.0-1.0); Blood Urea Nitrogen 13 mg/dL (9-16); Calcium 9.3 mg/dL (8.4-10.2); Carbon Dioxide 28 mmol/L (22-29); Chloride 106 mmol/L (96-108); Cholesterol 221 mg/dL (<200); Estimated Glomerular Filt Rate > 60; Glucose Random 99 mg/dL (60-115); HDL Cholesterol 76 mg/dL (>40); LDL Cholesterol Calculated 117 mg/dL (<100); Potassium 3.7 mmol/L (3.3-5.1); Sodium 142 mmol/L (135-145); Total Protein 7.2 g/dL (6.5-8.0); Triglycerides 144 mg/dL (<150)
[2023-08-05 13:08] LABS: Folate 4.1 ng/mL (> or = 4.0); Vitamin B12 235 pg/mL (200-900)
[2023-08-05 13:09] LABS: TSH reflex Free T4 1.73 uIU/mL (0.32-4.0); Vitamin D 25-OH Total 17.6 ng/mL (>30)
[2023-08-05 13:13] LABS: Reflex LDLD? No
== END 2023-08-05 10:47 | disposition home or self-care (01) ==
LOC: HO.HHCL 10:46
PROVIDERS: Visit Provider Family Medicine
DX: R68.82 Decreased libido (principal); E53.8 Deficiency of other specified B group vitamins; E55.9 Vitamin D deficiency, unspecified; F10.90 Alcohol use, unspecified, uncomplicated; Z82.3 Family history of stroke
CPT/HCPCS: 36415; 80053; 80061; 82306; 82607; 82746; 83036; 84443; 85025

== ENCOUNTER 2023-09-11 12:52 | Outpatient (REF) | payer OTHER, SELFPAY | END 2023-09-11 12:53 | disposition home or self-care (01) | LOC: HO.MAMMO 12:52 | PROVIDERS: PCP Family Medicine; Visit Provider Family Medicine | DX: Z12.31 Encounter for screening mammogram for malignant neoplasm of breast (principal) | CPT/HCPCS: 77063; 77067 ==

== ENCOUNTER → 2023-09-11 13:45 | Outpatient (BNV) | payer OTHER, SELFPAY | PROVIDERS: PCP Family Medicine; Visit Provider Radiology Diagnostic Radiology | DX: Z12.31 Encounter for screening mammogram for malignant neoplasm of breast (principal) | CPT/HCPCS: 77063; 77067 ==

== ENCOUNTER 2024-09-15 11:39 | Outpatient (REF) | payer OTHER, SELFPAY ==
--- OUTSIDE RECORDS SUMMARY | 2024-09-15 12:54 | XMS_ITS | Encounter Summary ---
Author Organization [employer] Address [address] [facility] [address] [place] [address] Care Team Providers Care Security Operations Analyst Name Role Phone Glo Zaidi MD Primary Care Provider [phone] Reason for Visit * Reason Onset Date Comments Med Refill 02/11/2024 Encounter Details Date Type Department Care Team ([facility] st Contact Info) Description 02/11/2024 Telephone [facility] MED[facility] [address] [place], [place] [phone] Glo Zaidi MD [address] [place] [address] Med Refill Social History Tobacco Use Types Packs/Day Years Used Date Smoking Tobacco: Former Cigarettes Passive Smoke Exposure: Current Smokeless Tobacco: Never Depression Answer Date Recorded Patient Health Questionnaire-9 Score 7 08/05/2023 Patient Health Questionnaire-9 Score 7 08/05/2023 Last PHQ-9: Questionnaire Data Not on file 0 08/05/2023 Housing Stability Answer Date Recorded What is your housing situation today? I have eliel brizuela 08/05/[address] you li ve. Do you have problems with any of the following? None of the above 08/05/2023 Food Insecurity Answer Date Recorded Within the past 12 months, y ou worried that your food would run out before you got money to buy more: Never True 08/05/2023 Within the past 12 months,th e food you bought just didn't last and you didn't have enough money to get more: Never True 11/2023 Transportation Answer Date Recorded In the past 12 months, has l ack of transportation kept you from medical appts, meetings, work or from getting things needed for daily living? No 08/05/2023 Utilities Answer Date Recorded In the past 12 months, has t he electric, gas, oil or water company threatened to shut off services in your home? No 08/05/2023 Depression Answer Date Recorded Patient Health Questionnaire-2 Score 3 08/05/2023 Comments Unknown Sex and Gender Information Value Date Recorded Sex Assigned at Female 02/26/2022 10:14 AM EDT Legal Sex Female 10:14 AM EDT Gender Identity Female 02/26/2022 10:14 AM EDT Sexual Orientation Straight 02/26/2022 10 :14 AM EDT documented as of this encounter Miscellaneous Notes * Telephone Encounter - Erin De La Vega - 02/11/2024 12:47 PM EDT TC from pt requesting medication refill. Medications needing refill : clonazePAM (KlonoPIN) 0.5 MG tablet To be sent to: [facility]/pharmacy #[id number] [place], [place] - [address] documented in this encounter Plan of Treatment Upcoming Encounters Date Type Department Care Team (Late st Contact Info) Description 10/08/2024 11:30 AM EDT Office Visit [facility] [address] [place] [address] Glo Zaidi MD [address] [place] [address] documented as of this encounter Visit Diagnoses Not on filedocumented in this encounter Additional Health Concerns Assessment Noted Time PHQ-9 Depression Total Score: 7 08/05/19 24 9:56 AM EDT documented as of this encounter Care Teams Security Operations Analyst Relationship Specialty Start Date End Date Glo Zaidi MD [address] [place] [address] PCP - General Family Medicine 12/08/14 documented as of this encounter
--- OUTSIDE RECORDS SUMMARY | 2024-09-15 12:54 | XMS_ITS | Encounter Summary ---
Author Organization [employer] Address [address] [facility] [address] [place] [address] Care Team Providers Care Supplier Quality Specialist Name Role Phone Glo Zaidi MD Primary Care Provider [phone] Encounter Details Date Type Department Care Team ([facility] st Contact Info) Description 05/01/2022 Abstract [facility] MED[facility]INE [address] [place], [place] [phone] Glo Zaidi MD [address] [place], [place] [phone] Social History Tobacco Use Types Packs/Day Years Used Date Smoking Tobacco: Every Day Cigarettes Passive Smoke Exposure: Current Smokeless Tobacco: Never Depression Answer Date Recorded Patient Health Questionnaire-9 Score 7 05/01/2022 Depression Answer Date Recorded Patient Health Questionnaire-2 Score 3 05/01/2022 Comments Unknown Sex and Gender Information Value Date Recorded Sex Assigned at Female 02/26/2022 10:14 AM EDT Legal Sex Female 10:14 AM EDT Gender Identity Female 02/26/2022 10:14 AM EDT Sexual Orientation Straight 02/26/2022 10 :14 AM EDT COVID-19 Exposure Response Date Recorded In the last 10 days, have yo u been in contact with someone who was confirmed or suspected to have Coronavirus/COVID-19? No / Unsure 05/01/2022 1:36 PM EST documented as of this encounter Functional Status * Over the past 2 weeks, how often have you been bothered by any of the following problems? Question Answer Date of Assessment Author Patient Health Questionnaire -2 Score 3 05/01/2022 2:21 PM EST Allie Denney [place] * If you checked off any problems on this questionnaire so far, Question Answer Date of Assessment Author How difficult have these problems made it for you to do your work, take care of things at home, or get along with other people? Not difficult at all 05/01/2022 2:21 PM Vic Colunga [place] * Over the past 2 weeks, how often have you been bothered by any of the following problems? Question Answer Date of Assessment Author Little interest or pleasure in doing things Several days 05/01/2022 2:21 PM Daly Colunga [place] Feeling down, depressed, or hopeless More than half the days 05/01/2022 2:21 PM Daly Colunga [place] Trouble falling or staying asleep, or sleeping too much Several days 05/01/2022 2:21 PM Daly Colunga [place] Feeling tired or having little energy Several days 05/01/2022 2:21 PM Daly Colunga [place] Poor appetite or overeating Not at all 05/01/2022 2:21 PM Daly Colunga [place] Feeling bad about yourself - or that you are a failure or have let yourself or your family down Not at all 05/01/2022 2:21 PM Daly Colunga [place] Trouble concentrating on things, such as reading the newspaper or watching television Several days 05/01/2022 2:21 PM Daly Colunga MA Moving or speaking so slowly that other people could have noticed? Or the opposite - being so fidgety or restless that you have been moving around a lot more than usual. Several days 05/01/2022 2:21 PM Daly Colunga MA Thoughts that you would be better off or hurting yourself in some way Not at all 05/01/2022 2:21 PM Daly Colunga MA Patient Health Questionnaire-9 Score 7 05/01/2022 2:21 PM Daly Colunga [place] documented as of this encounter Plan of Treatment Upcoming Encounters Date Type Department Care Team (Late st Contact Info) Description 10/08/2024 11:30 AM EDT Office Visit [facility] [address] [place] [address] Glo Zaidi MD [address] [place] [address] documented as of this encounter Visit Diagnoses Not on filedocumented in this encounter Additional Health Concerns Assessment Noted Time PHQ-9 Depression Total Score: 7 05/01/19 23 2:21 PM EST documented as of this encounter Care Teams Supplier Quality Specialist Relationship Specialty Start Date End Date Glo Zaidi MD [address] [place] [address] PCP - General Family Medicine 12/08/14 documented as of this encounter
--- OUTSIDE RECORDS SUMMARY | 2024-09-15 12:54 | XMS_ITS | Encounter Summary ---
Author Organization [employer] Address [address] [place] [address] [address], [place] [address] Care Team Providers Care Toxicologist Name Role Phone Glo Zaidi MD Primary Care Provider Reason for Visit * Reason Onset Date Comments Medication Question 12/24/2022 Encounter Details Date Type Department Care Team ([facility] st Contact Info) Description 12/24/2022 Telephone [facility] MEDICINE [address] [place], [place] [phone] Glo Zaidi MD [address] [place] [address] Medication Question Social History Tobacco Use Types Packs/Day Years [...] encounter Miscellaneous Notes * Telephone Encounter - Glo Zaidi MD - 12/25/2022 5:44 PM EDT Script for nicotine patch and gum sent. * Telephone Encounter - Carmita Hathaway - 12/24/2022 12:13 PM EDT Tc from patient requesting a new script for nicotine patches. Patient would like to quit smoking. documented in this encounter Plan of Treatment Upcoming Encounters Date Type Department Care Team (Late st Contact Info) Description 10/08/2024 11:30 AM EDT Office Visit [facility] MEDICINE [address] [place] [address] Glo Zaidi MD [address] [place] [address] documented as of this encounter Visit Diagnoses Not on filedocumented in this encounter Additional Health Concerns Assessment Noted Time PHQ-9 Depression Total Score: 7 05/01/19 23 2:21 PM EST documented as of this encounter Care Teams Toxicologist Relationship Specialty Start Date End Date Glo Zaidi MD [address] [place] [address] PCP - General Family Medicine 12/08/14 documented as of this encounter
--- OUTSIDE RECORDS SUMMARY | 2024-09-15 12:54 | XMS_ITS | Encounter Summary ---
Author Organization [employer] Address [address] [facility] [address] [place] [address] Care Team Providers Care Emts Name Role Phone Glo Zaidi MD Primary Care Provider [phone] Encounter Details Date Type Department Care Team ([facility] st Contact Info) Description 08/06/2023 Orders Only [facility] MEDICINE [address] [place], [place] [phone] Glo Zaidi MD [address] [place], [place] [phone] Vitamin B12 deficiency Social History Tobacco Use Types Packs/Day Years [...] AM EDT documented as of this encounter Plan of Treatment Upcoming Encounters Date Type Department Care Team (Late st Contact Info) Description 10/08/2024 11:30 AM EDT Office Visit [facility] MED[facility]INE [address] [place] [address] Glo Zaidi MD [address] [place] [address] documented as of this encounter Visit Diagnoses Diagnosis Vitamin B12 deficiency Other B-complex deficiencies documented in this encounter Additional Health Concerns Assessment Noted Time PHQ-9 Depression Total Score: 7 08/05/19 24 9:56 AM EDT documented as of this encounter Care Teams Emts Relationship Specialty Start Date End Date Glo Zaidi MD [address] [place] [address] PCP - General Family Medicine 12/08/14 documented as of this encounter
--- OUTSIDE RECORDS SUMMARY | 2024-09-15 12:54 | XMS_ITS | Encounter Summary ---
Author Organization [email or web address] Address [address] [facility] [address] [place] [address] Care Team Providers Care Geophysical Engineer Name Role Phone Glo Zaidi MD Primary Care Provider [phone] Reason for Visit * Reason Onset Date Comments Med Refill 01/08/2024 Encounter Details Date Type Department Care Team (Late st Contact Info) Description 01/08/2024 Telephone [facility] [address] [place], [place] [phone] Glo Zaidi MD [address] [place] [address] Med Refill Social History Tobacco Use Types [...] Encounter - Erin De La Vega - 01/08/2024 10:31 AM EDT TC from pt requesting medication refill. Medications needing refill : clonazePAM (KlonoPIN) 0.5 MG tablet To be sent to: [facility]/pharmacy #[id number] [facility] [address] documented in this encounter Plan of Treatment Upcoming Encounters Date Type Department Care Team (Late st Contact Info) Description 10/08/2024 11:30 AM EDT Office Visit [facility] [address] [place] [address] Glo Zaidi MD [address] [place] [address] documented as of this encounter Visit Diagnoses Not on filedocumented in this encounter Additional Health Concerns Assessment Noted Time PHQ-9 Depression Total Score: 7 08/05/19 24 9:56 AM EDT documented as of this encounter Care Teams Geophysical Engineer Relationship Specialty Start Date End Date Glo Zaidi MD [address] [place] [address] PCP - General Family Medicine 12/08/14 documented as of this encounter
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
--- OUTSIDE RECORDS SUMMARY | 2024-09-15 12:54 | XMS_ITS | Patient Health Record ---
Author Organization [facility] Address [address] [place] [address] Care Team Providers Care Wildlife Biology Technician Name Role Phone Dejuan PLAZA, Glo Primary Care Provider Fabio Gibbs [phone] Allergies No Known Allergies Reason For Referral No Information Medications Medication SIG (Take, Route, Frequency, Duration) Notes Start Date End Date Status Dicyclomine HCl 10 MG use 1 or 2 30 henry chantal before breakfast, lunch, and dinner Orally Three times a day for 30 day(s) 05/04/2021 Active Dicyclomine HCl 10 MG TAKE 1-2 CAPS BY MOUTH 4 TIMES A DAY 30 MIN BEFORE MEALS TO PREVENT ABDOMINAL SYMPTOMS for 90 Active FLUoxetine HCl 20 MG Oral for 90 Active clonazePAM 0.5 MG Oral for 30 Active Vitamin D3 Gummies Adult 25 MCG (1000 UT) 1 tablet Orally Once a day for 30 day(s) Active Omeprazole 20 MG 1 capsule 30 minutes before morning meal Orally Once a day for 30 day(s) PRN--approx 2x/week Active Immunizations Vaccine Route Administration Date Status Comme nts Influenza Unknown 11/15/2020 Refused Social History Tobacco Use: Social History Observation Description Date Details (start date - stop date) Current Smoker NA - NA Tobacco Use/Smoking Question Answer Notes Patient is a current smoker How often do you smoke cigarettes? every day How many cigarettes a day do you smoke? 6-10 Alcohol Screen Question Answer Notes Did you have a drink contain ing alcohol in the past year? Yes How often did you have a dri nk containing alcohol in the past year? 4 or more times a week (4 points) How many drinks did you have on a typical day when you were drinking in the past year? 3 or 4 drinks (1 point) Points 5 Interpretation Positive Section Notes: Smoker; occasional alcohol Smoker; occasional alcohol Problems Problem Type SNOMED Code ICD Code Onset Dates Problem Status W/U Status Risk Notes Problem 600638888 Abdominal bloati ng (R14.0) Active confirmed Problem 916543077 Irritable bowel syndrome with diarrhea (K58.0) Active confirmed Problem Gastroesophageal reflux disease (K21.9) Active confirmed Problem 627145544 Gallstones (K80.20) Active confirmed Problem Gastritis (6479829) Gastritis (K29.70) Active confirmed Problem 02467006 Abdominal discomfort, generalized (R10.84) Active confirmed Problem 560221451 Gastroesophageal reflux disease, unspecified whether esophagitis present (K21.9) Active confirmed Plan Of Treatment Pending Test Test Name Order Date CELIAC PANEL #10 11/15/2020 US ABD 11/15/2020 Future Test Test Name Order Date UPPER GI ENDOSCOPY 11/15/2020 COLONOSCOPY 11/15/2020 Insurance Providers Payer Name Payer Address Payer Phone Subscriber Number Group Number Insured Name Patient Relationship to Insured Coverage Start Date Coverage End Date [facility] [address] [address] [place] [phone] [id number] ADRIÁN Z, EDEN Self - patient is the insured Medical (General) History Medical History History ICD Code Asthma--prn inhaler Denies NM,DM,CVA,Lung disease,renal dise ase Urinary incontinence GERD-EGD in 11/2020 with a all hiatal hernia, but no esophagitis nor Andersen's esophagus--minimal gastritis, gastric biopsies negative for H. pylori, normal duodenal biopsies Anxiety Positive H. pylori stool antigen in the past treated with antibiotics IBS-negative duodenal biopsi es for celiac disease and negative laboratories for celiac disease in 2020 Negative colonoscopy in 12/16 20--no polyps, no inflammatory bowel disease, and biopsies negative for microscopic colitis Gallstones-seeing Dr. Raymundo meza in early 2021 for evaluation for possible surgery Surgical History Surgery Date(Month/Year) Tubal ligation Cryosurgery of cervix for abnormal PAP s jefferson
--- OUTSIDE RECORDS SUMMARY | 2024-09-15 12:54 | XMS_ITS | Encounter Summary ---
Author Organization [employer] Address [address] [place] [address] [address], [place] [address] Care Team Providers Care Music Minister Name Role Phone Glo Zaidi MD Primary Care Provider [phone] Reason for Visit * Reason Onset Date Comments Med Refill 01/07/2023 Encounter Details Date Type Department Care Team ([facility] st Contact Info) Description 01/07/2023 Telephone [facility] [address] [place], [place] [phone] Glo Zaidi MD [address] [place] [address] Med Refill Social History Tobacco Use Types [...] encounter Miscellaneous Notes * Telephone Encounter - Sarina Paniagua - 01/07/2023 2:27 PM EDT Tc from pt requesting med refill on clonazePAM (KlonoPIN) 0.5 MG tablet Please sent to [facility]/pharmacy #[id number] - [place], [place] - [address] documented in this encounter Plan of Treatment Upcoming Encounters Date Type Department Care Team (Late st Contact Info) Description 10/08/2024 11:30 AM EDT Office Visit [facility] [address] [place] [address] Glo Zaidi MD [address] [place] [address] documented as of this encounter Visit Diagnoses Not on filedocumented in this encounter Additional Health Concerns Assessment Noted Time PHQ-9 Depression Total Score: 7 05/01/19 23 2:21 PM EST documented as of this encounter Care Teams Music Minister Relationship Specialty Start Date End Date Glo Zaidi MD [address] [place] [address] PCP - General Family Medicine 12/08/14 documented as of this encounter
--- OUTSIDE RECORDS SUMMARY | 2024-09-15 12:54 | XMS_ITS | Encounter Summary ---
Author Organization [employer] Address [address] [facility] [address] [place] [address] Care Team Providers Care Communications Analyst Name Role Phone Glo Zaidi MD Primary Care Provider [phone] Reason for Visit * Reason Onset Date Comments Med Refill 07/15/2024 Encounter Details Date Type Department Care Team ([facility] st Contact Info) Description 07/15/2024 Telephone [facility] [address] [place], [place] [phone] Glo Zaidi MD [address] [place] [address] Med Refill Social History Tobacco Use Types [...] Encounter - Erin De La Vega - 07/15/2024 11:36 AM EDT TC from pt requesting medication refill. Medications needing refill : clonazePAM (KlonoPIN) 0.5 MG tablet To be sent to: [facility]/pharmacy #[id number] [facility] [address] documented in this encounter Plan of Treatment Upcoming Encounters Date Type Department Care Team (Late st Contact Info) Description 10/08/2024 11:30 AM EDT Office Visit [facility] [address] [place] [address] Glo Zaidi MD [address] [place] [address] documented as of this encounter Visit Diagnoses Not on filedocumented in this encounter Additional Health Concerns Assessment Noted Time PHQ-9 Depression Total Score: 7 08/05/19 24 9:56 AM EDT documented as of this encounter Care Teams Communications Analyst Relationship Specialty Start Date End Date Glo Zaidi MD [address] [place] [address] PCP - General Family Medicine 12/08/14 documented as of this encounter
--- OUTSIDE RECORDS SUMMARY | 2024-09-15 12:54 | XMS_ITS | Encounter Summary ---
Author Organization [employer] Address [address] [place] [address] Care Team Providers Care Import/Export Analyst Name Role Phone Glo Zaidi MD Primary Care Provider [phone] Reason for Visit * Reason Onset Date Comments Appointment Request 04/17/2022 Encounter Details Date Type Department Care Team ([facility] st Contact Info) Description 04/17/2022 Telephone [facility] [address] [place], [place] [phone] Glo Zaidi MD [address] [place] [address] Appointment Request Social History Tobacco Use Types Packs/Day Years Used Date Smoking Tobacco: Never Assessed Comments Unknown Sex and Gender Information Value Date Recorded Sex Assigned at Female 02/26/2022 10:14 AM EDT Legal Sex Female 10:14 AM EDT Gender Identity Female 02/26/2022 10:14 AM EDT Sexual Orientation Straight 02/26/2022 10 :14 AM EDT documented as of this encounter Miscellaneous Notes * Telephone Encounter - Carmita Hathaway - 04/18/2022 10:37 AM EST Tc from pt requesting a call back regarding voice message left regarding scheduling APPT Please contact pt at [phone] * Telephone Encounter - Jose Francisco Rosas - 04/17/2022 9:52 AM EST Tc from pt requesting a call back regarding voice message left regarding scheduling APPT Please contact pt at [phone] documented in this encounter Plan of Treatment Upcoming Encounters Date Type Department Care Team ([facility] st Contact Info) Description 10/08/2024 11:30 AM EDT Office Visit [facility] [address] [place] [address] Glo Zaidi MD [address] [place] [address] documented as of this encounter Visit Diagnoses Not on filedocumented in this encounter Care Teams Import/Export Analyst Relationship Specialty Start Date End Date Glo Zaidi MD [address] [place] [address] PCP - General Family Medicine 12/08/14 documented as of this encounter
--- OUTSIDE RECORDS SUMMARY | 2024-09-15 12:54 | XMS_ITS | Encounter Summary ---
Author Organization [employer] Address [address] [facility] [address] [place] [address] Care Team Providers Care Special Education Math Teacher Name Role Phone Glo Zaidi MD Primary Care Provider [phone] Reason for Visit * Reason Onset Date Comments Med Refill 05/01/2024 Encounter Details Date Type Department Care Team (Late st Contact Info) Description 05/01/2024 Telephone [facility] [address] [place], [place] [phone] Glo Zaidi MD [address] [place] [address] Med Refill Social History Tobacco Use Types [...] encounter Miscellaneous Notes * Telephone Encounter - Pierre Neal - 05/07/2024 8:26 AM EST Tc from pt requesting a callback as she states she can't be without medication clonazePAM (KlonoPIN) 0.5 MG tablet till May. [phone] * Telephone Encounter - Geraldine Oliveira RN - 05/01/2024 10:06 AM EST TC to pt. Initial TEACHER INSTRUMENTAL NV scheduled for 06/17/24 @ 3:15pm @ [facility]. * Telephone Encounter - Jose Lemus - 05/01/2024 9:24 AM EST TC from pt requesting medication refill. Medications needing refill : clonazePAM (KlonoPIN) 0.5 MG tablet To be sent to: [facility]/pharmacy #[id number] [facility] [place] - [address] documented in this encounter Plan of Treatment Upcoming Encounters Date Type Department Care Team (Late st Contact Info) Description 10/08/2024 11:30 AM EDT Office Visit [facility] [address] [place] [address] Glo Zaidi MD [address] [place] [address] documented as of this encounter Visit Diagnoses Not on filedocumented in this encounter Additional Health Concerns Assessment Noted Time PHQ-9 Depression Total Score: 7 08/05/19 24 9:56 AM EDT documented as of this encounter Care Teams Special Education Math Teacher Relationship Specialty Start Date End Date Glo Zaidi MD [address] [place] [address] PCP - General Family Medicine 12/08/14 documented as of this encounter
--- OUTSIDE RECORDS SUMMARY | 2024-09-15 12:54 | XMS_ITS | Encounter Summary ---
Author Organization [employer] Address [address] [facility] [address] [place] [address] Care Team Providers Care Animal Park Code Enforcement Officer Name Role Phone Glo Zaidi MD Primary Care Provider [phone] Encounter Details Date Type Department Care Team (Late st Contact Info) Description 12/25/2022 Orders Only [facility] [address] [place] [phone] Glo Zaidi MD [address] [place] [phone] Tobacco dependence (Primary Dx) Social History Tobacco Use Types Packs/Day Years [...] Description 10/08/2024 11:30 AM EDT Office Visit [facility] [address] [place] [phone] Glo Zaidi MD [address] [place] [phone] documented as of this encounter Visit Diagnoses Diagnosis Tobacco dependence- Primary Tobacco use disorder documented in this encounter Additional Health Concerns Assessment Noted Time PHQ-9 Depression Total Score: 7 05/01/19 23 2:21 PM EST documented as of this encounter Care Teams Animal Park Code Enforcement Officer Relationship Specialty Start Date End Date Glo Zaidi MD [address] [place] [address] PCP - General Family Medicine 12/08/14 documented as of this encounter
== END 2024-09-15 11:40 | disposition home or self-care (01) ==
LOC: HO.MAMMO 11:39
PROVIDERS: PCP Family Medicine; Visit Provider Family Medicine
DX: Z12.31 Encounter for screening mammogram for malignant neoplasm of breast (principal)
CPT/HCPCS: 77063; 77067

== ENCOUNTER → 2024-09-15 12:00 | Outpatient (BNV) | payer OTHER, SELFPAY | PROVIDERS: PCP Family Medicine; Visit Provider Internal Medicine | DX: Z12.31 Encounter for screening mammogram for malignant neoplasm of breast (principal) | CPT/HCPCS: 77063; 77067 ==

== ENCOUNTER 2024-10-08 13:00 | Outpatient (REF) | payer OTHER, SELFPAY ==
--- NOTE | ~2024-10-08 | XR_ITS ---
EXAMINATION: XR CHEST CLINICAL INFORMATION: worsening productive cough COMPARISON: October 2020 TECHNIQUE: 2 views of the chest were obtained. FINDINGS: No significant abnormality is noted involving the heart, lungs, mediastinum, bony thorax or soft tissues. XR/XR chest 2V IMPRESSION: No acute disease Electronically signed by: Roberto Gonzalez MD 10/08/2024 02:36 PM EDT
--- OUTSIDE RECORDS SUMMARY | 2024-10-08 15:06 | XMS_ITS | Patient Health Record ---
Author Organization [facility] Address [address] [place] [address] Care Team Providers Care Agent Licensing Clerk Name Role Phone Dejuan PLAZA, Glo Primary Care Provider Fabio Gibbs [phone] Allergies No Known Allergies Reason For Referral [...] Problem Status W/U Status Risk Notes Problem 806423614 Abdominal bloati ng (R14.0) Active confirmed Problem 107689411 Irritable bowel syndrome with diarrhea (K58.0) Active confirmed Problem Gastroesophageal reflux disease (K21.9) Active confirmed Problem 326035713 Gallstones (K80.20) Active confirmed Problem Gastritis (4642482) Gastritis (K29.70) Active confirmed Problem 31847754 Abdominal discomfort, generalized (R10.84) Active confirmed Problem 606343478 Gastroesophageal reflux disease, unspecified whether esophagitis present (K21.9) Active confirmed Plan Of Treatment Pending Test Test Name Order Date CELIAC PANEL #10 11/15/2020 US ABD 11/15/2020 Future Test Test Name Order Date UPPER GI ENDOSCOPY 11/15/2020 COLONOSCOPY 11/15/2020 Insurance Providers Payer Name Payer Address Payer Phone Subscriber Number Group Number Insured Name Patient Relationship to Insured Coverage Start Date Coverage End Date [facility] [address] [place] [phone] [id number] ADRIÁN Z, EDEN Self - patient is the insured Medical (General) History Medical History History ICD Code Asthma--prn inhaler Denies [place],DM,CVA,Lung disease,renal dise ase Urinary incontinence GERD-EGD in [...]
[2024-10-08 16:08] LABS: MANUAL DIFF FLAG NO
[2024-10-08 16:17] LABS: Basophils Absolute Auto 0.1 X10*3/uL (0.0-0.2); Basophils Percent Auto 0.6 % (0-2); Eosinophils Absolute Auto 0.2 X10*3/uL (0.0-0.4); Eosinophils Percent Auto 2.9 % (0-4); Hematocrit 42.1 % (37.0-47.0); Hemoglobin 14.8 g/dl (12.0-16.0); Imm Gran Abs Auto 0.04 X10*3/uL (0.00-0.03); Imm Gran Pct Auto 0.5 % (0.0-0.4); Lymphocytes Absolute Auto 2.1 X10*3/uL (1.2-4.9); Lymphocytes Percent Auto 24.6 % (20-40); Mean Corpuscular HGB Conc 35.2 g/dl (31.0-35.0); Mean Corpuscular Hemoglobin 34.8 pg (27.0-33.0); Mean Corpuscular Volume 99.1 fL (80.0-98.0); Mean Platelet Volume 12.5 fL (9.4-12.3); Monocytes Absolute Auto 0.5 X10*3/uL (0.1-1.2); Monocytes Percent Auto 5.6 % (2-11); Neutrophils Absolute Auto 5.5 x10*3/uL (2.0-8.3); Neutrophils Percent Auto 65.8 % (45-73); Platelet Count 200 X10*3/uL (160-400); Red Blood Count 4.25 X10*6/uL (4.20-5.50); Red Cell Distribution Width 12.8 % (11.0-16.0); White Blood Count 8.4 X10*3/uL (4.8-10.8)
[2024-10-08 16:26] LABS: Estimated Average Glucose 91 mg/dL; Hemoglobin A1C 111.8065 umol/L; Hemoglobin A1c % 4.8 % (<6.0)
[2024-10-08 16:41] LABS: Alanine Aminotransferase 71 U/L (0-31); Albumin Level 4.6 g/dL (3.5-5.0); Alkaline Phosphatase 106 U/L (39-117); Anion Gap 14 (12-20); Aspartate Amino Transferase 58 U/L (5-31); Bilirubin Direct 0.2 mg/dL (0.0-0.5); Bilirubin Total 0.6 mg/dL (0.0-1.0); Blood Urea Nitrogen 10 mg/dL (9-16); Calcium 9.4 mg/dL (8.4-10.2); Carbon Dioxide 25 mmol/L (22-29); Chloride 105 mmol/L (96-108); Cholesterol 222 mg/dL (<200); Estimated Glomerular Filt Rate > 60; Glucose Random 90 mg/dL (60-115); HDL Cholesterol 75 mg/dL (>40); LDL Cholesterol Calculated 121 mg/dL (<100); Potassium 4.1 mmol/L (3.3-5.1); Sodium 140 mmol/L (135-145); Total Protein 7.3 g/dL (6.5-8.0); Triglycerides 133 mg/dL (<150)
[2024-10-08 16:59] LABS: Thyroid Stimulating Hormone 1.37 uIU/mL (0.32-4.0); Vitamin D 25-OH Total 34.9 ng/mL (>30)
[2024-10-08 17:02] LABS: Vitamin B12 601 pg/mL (200-900)
[2024-10-08 17:41] LABS: CT PCR NOT DETECTED (Not Detect.); NG PCR NOT DETECTED (Not Detect.)
[2024-10-08 18:53] LABS: Reflex LDLD? No
[2024-10-09 07:48] LABS: Syphilis Screen Nonreactive (Nonreactive)
[2024-10-09 08:11] LABS: HBS Num1 55.56 mIU/mL (0-7.99); HBsAGNum1 0.48 S/CO (0.00-0.99); HIV AB/AG Nonreactive (Nonreactive); Hepatitis B Surface Antigen Negative (Negative); ~Hepatitis B Surface Antibody REACTIVE (Nonreactive); ~Hepatitis C Antibody Nonreactive (Nonreactive)
[2024-10-09 08:17] LABS: Hepatitis A Antibody IgG Nonreactive (Nonreactive); ~Hepatitis A Antibody IgG 0.35 S/CO (0.00-0.99)
== END 2024-10-08 13:01 | disposition home or self-care (01) ==
LOC: HO.HHCL 13:00
PROVIDERS: Visit Provider Family Medicine
DX: R05.3 Chronic cough (principal); R53.83 Other fatigue; Z11.3 Encounter for screening for infections with a predominantly sexual mode of transmission; Z13.1 Encounter for screening for diabetes mellitus; E55.9 Vitamin D deficiency, unspecified; E53.8 Deficiency of other specified B group vitamins; Z13.220 Encounter for screening for lipoid disorders; L29.9 Pruritus, unspecified
CPT/HCPCS: 71046; 80048; 80061; 80076; 82306; 82607; 82746; 83036; 84443; 85025; 86706; 86708; 86780; 86803; 87340; 87389; 87491; 87591

== ENCOUNTER → 2024-10-08 13:45 | Outpatient (BNV) | payer OTHER, SELFPAY | PROVIDERS: Visit Provider Radiology Diagnostic Radiology | DX: R05.1 Acute cough (principal) | CPT/HCPCS: 71046 ==

== ENCOUNTER → 2024-10-11 08:37 | Outpatient (BNV) | payer OTHER, SELFPAY | PROVIDERS: Emergency Provider Emergency Medicine; PCP Family Medicine; Visit Provider Radiology Diagnostic Radiology | DX: J40 Bronchitis, not specified as acute or chronic (principal) | CPT/HCPCS: 71046 ==

== ENCOUNTER 2024-10-11 09:17 | Emergency (ER) | payer OTHER, SELFPAY ==
--- NOTE | ~2024-10-11 | XR_ITS ---
CLINICAL HISTORY: cough, fever, tightness 2 view chest x-ray Comparison: None Findings: Lungs are well inflated. Cardiac silhouette is within normal limits. Mild bilateral perihilar bronchial wall thickening with perihilar interstitial prominence. No focal areas of consolidation. No pleural effusion or pneumothorax. IMPRESSION: Perihilar bronchitis. This document has been electronically signed by: Manuel Khan MD on 10/11/2024 09:52:17
[2024-10-11 09:20] VITALS: BP 121/71; PULSE 107; RESP 18; TEMP 37.1; O2SAT 96; BMI 24.7
--- OUTSIDE RECORDS SUMMARY | 2024-10-11 09:33 | XMS_ITS | Patient Health Record ---
Author Organization [facility] Address [address] [place] [address] Care Team Providers Care Rare/Endangered Species Specialist Name Role Phone Dejuan PLAZA, Glo Primary Care Provider Fabio Gibbs [phone] Allergies No Known Allergies Reason For Referral [...] Problem Status W/U Status Risk Notes Problem 101344274 Abdominal bloati ng (R14.0) Active confirmed Problem 050277261 Irritable bowel syndrome with diarrhea (K58.0) Active confirmed Problem Gastroesophageal reflux disease (K21.9) Active confirmed Problem 797928298 Gallstones (K80.20) Active confirmed Problem Gastritis (8311353) Gastritis (K29.70) Active confirmed Problem 83386520 Abdominal discomfort, generalized (R10.84) Active confirmed Problem 632462400 Gastroesophageal reflux disease, unspecified whether esophagitis present (K21.9) Active confirmed Plan Of Treatment Pending Test Test Name Order Date CELIAC PANEL #10 11/15/2020 US ABD 11/15/2020 Future Test Test Name Order Date UPPER GI ENDOSCOPY 11/15/2020 COLONOSCOPY 11/15/2020 Insurance Providers Payer Name Payer Address Payer Phone Subscriber Number Group Number Insured Name Patient Relationship to Insured Coverage Start Date Coverage End Date [facility] [address] [place] [phone] [id number] ADRIÁN Z, EDEN Self - patient is the insured Medical (General) History Medical History History ICD Code Asthma--prn inhaler Denies [place],DM,CVA,Lung disease,renal dise ase Urinary incontinence GERD-EGD in [...]
[2024-10-11 09:35] LABS: MANUAL DIFF FLAG NO
[2024-10-11 09:36] LABS: Basophils Percent Auto 0.5 % (0-2); Eosinophils Absolute Auto 0.3 X10*3/uL (0.0-0.4); Eosinophils Percent Auto 4.3 % (0-4); Hematocrit 37.6 % (37.0-47.0); Hemoglobin 13.2 g/dl (12.0-16.0); Imm Gran Abs Auto 0.04 X10*3/uL (0.00-0.03); Imm Gran Pct Auto 0.6 % (0.0-0.4); Lymphocytes Absolute Auto 0.9 X10*3/uL (1.2-4.9); Lymphocytes Percent Auto 13.5 % (20-40); Mean Corpuscular HGB Conc 35.1 g/dl (31.0-35.0); Mean Corpuscular Hemoglobin 34.5 pg (27.0-33.0); Mean Corpuscular Volume 98.2 fL (80.0-98.0); Mean Platelet Volume 10.8 fL (9.4-12.3); Monocytes Absolute Auto 0.6 X10*3/uL (0.1-1.2); Monocytes Percent Auto 8.6 % (2-11); Neutrophils Absolute Auto 4.7 x10*3/uL (2.0-8.3); Neutrophils Percent Auto 72.5 % (45-73); Platelet Count 205 X10*3/uL (160-400); Red Blood Count 3.83 X10*6/uL (4.20-5.50); Red Cell Distribution Width 12.8 % (11.0-16.0); White Blood Count 6.5 X10*3/uL (4.8-10.8)
[2024-10-11 09:46] LABS: IDNOW Serial# 6674DD1D; Strep A Nucleic Acid Negative (Negative)
--- NOTE | 2024-10-11 09:52 | ED.URI ---
HPI - URI/Sore Throat General Chief Complaint: Upper Respiratory Symptoms Stated Complaint: sob Time Seen by Provider: 10/11/24 09:43 Source: patient Mode of arrival: ambulatory Limitations: no limitations History of Present Illness ED Provider: MIGUEL ÁNGEL CORTEZ PA-C HPI Narrative: This is a 49 year old female with pmhx significant for asthma and GERD who presents to day for worsening cough x4 days. She reports she has a chronic cough secondary to years of smoking tobacco, however it suddenly worsened 4 days ago. Reports associated body aches and headache. She vomited once from coughing. Reports her cough is productive, but is unsure the color of the sputum. She has associated chest tightness with her cough, but denies chest pain. Tried using her grandson's nebulizer, which helped her symptoms temporarily. She has also trialed DayQuil and saline nasal spray with no improvement in symptoms. She is a former tobacco smoker, but denies current use. Reports falling up with her primary care provider 4 days ago. She had an outpatient chest x-ray performed at that time however did not receive results. She denies any sick contacts or recent travel. Denies diarrhea, nausea, rash, or pain/swelling in lower extremities. Related Data Home Medications ?Medication ?Instructions ?Recorded ?Confirmed cholecalciferol (vitamin D3) 25 1 cap PO DAILY 12/08/20 07/21/21 mcg (1,000 unit) capsule (Vitamin D3) clonazepam 0.5 mg tablet 1 tab PO DAILY 12/08/20 07/21/21 fluoxetine 20 mg capsule 1 cap PO QAM 12/08/20 07/21/21 omeprazole 20 mg capsule,delayed 1 cap PO DAILY 12/08/20 07/21/21 release metronidazole 500 mg tablet 1 tab PO BID 07/28/21 07/28/21 Previous Rx's ?Medication ?Instructions ?Recorded fluticasone propionate 50 2 spray intranasal DAILY #9.9 mL 05/05/20 mcg/actuation nasal spray,suspension fluconazole 150 mg tablet 150 mg PO Q OTHER DAY 3 days #2 09/09/20 tabs albuterol sulfate 90 mcg/actuation 1 inh inhalation Q4-6H PRN 10/27/20 aerosol inhaler (Ventolin HFA) shortness of breath or wheezing #8.5 grams ibuprofen 600 mg tablet 600 mg PO Q6H PRN pain #30 tabs 07/28/21 oxycodone-acetaminophen 5 mg-325 1 tab PO Q4-6H PRN pain, severe 07/28/21 mg tablet (Percocet) #30 tabs albuterol sulfate 90 mcg/actuation 2 inh inhalation Q20M PRN 10/11/24 breath activated powder inhaler shortness of breath or wheezing #1 ea azithromycin 250 mg tablet 250 mg PO DAILY 4 days #4 tabs 10/11/24 benzonatate 100 mg capsule 100 mg PO BID PRN cough #20 caps 10/11/24 prednisone 20 mg tablet 40 mg (2 x 20 mg) PO DAILY 4 days 10/11/24 #8 tabs Allergies Allergy/AdvReac Type Severity Reaction Status Date / Time No Known Allergies Allergy Unknown Verified 10/11/24 09:20 [No Known Allergies*] Review of Systems Review of Systems: Constitutional: No fever, chills, fatigue, night sweats, weight changes ENT/Mouth: No ear pain, hearing loss, nasal congestion, sinus pain, rhinorrhea, sore throat Eyes: No eye pain, swelling, redness, vision changes, discharge Cardio: No chest pain, palpitations, GARCIA, orthopnea, peripheral edema Pulm: No SOB, wheezing, dyspnea, hemoptysis, +productive cough GI: No nausea, vomiting, hematemesis, abdominal pain, diarrhea, constipation, hematochezia, melena : No irregular bleeding, dysuria, frequency, urgency, hesitancy, hematuria, flank pain, urinary flow changes, urinary incontinence or retention MSK: No back pain, neck pain, joint pain, myalgias Skin: No lesions, rashes Neuro: No weakness, numbness, paresthesias, LOC, dizziness, headache Psych: No anxiety/panic, depression, SI/HI, AH/VH All other systems reviewed and are negative. [facility] Past Medical History Attestation statement: The following information was validated with the patient. Source: old records reviewed and nursing notes reviewed Medical History Back pain Depression Gallstones Helicobacter pylori antibody positive Anxiety Urinary incontinence GERD (gastroesophageal reflux disease) Asthma Surgical History History of laparoscopic cholecystectomy (~07/28/21) History of cryosurgery History of tubal ligation Social History Social History Alcohol intake: current Alcohol intake frequency: 0-2 drinks per day Alcohol type: wine Patient Tobacco Use Status: Current everyday Tobacco user Tobacco use type: Cigarette Cigarette Packs Per Day: 0.5 Cigarettes Per Day: 10.0 Years Smoked: 30 Smoked in Last 30 Days: No Use of substances other than those prescribed or required for medical reasons: No Advance Directives: No Advance Directives Information Provided: Yes Patient : No Physical Exam Vital Signs: Vital Signs: Last Vital Signs Temp 98.3 F 10/11/24 10:35 Pulse 99 10/11/24 10:35 Resp 18 10/11/24 10:35 BP 122/68 10/11/24 10:35 Pulse Ox 96 10/11/24 10:35 O2 Del Method Room Air 10/11/24 10:35 BMI result Body Mass Index 24.7 tachycardic General: Well appearing, in no acute distress. Skin: Warm, dry, intact. No rashes or lesions. Head: Normocephalic, atraumatic. EENT: Hearing is intact b/l. Conjunctiva clear. Sclera is anicteric. PERRLA. EOM intact. Moist mucous membranes.? Neck: Supple without LAD Cardiac: Chest wall symmetric. RRR Lungs: Normal respiratory effort without accessory muscle use. CTA bilaterally. No rales, rhonchi, or wheezes.? Abdomen: Soft, non-tender, non-distended. No rebound tenderness or guarding. Positive BS x4. Back: No midline spinous or paraspinal tenderness. No step off deformity. Ext: Upper and lower extremities atraumatic, without tenderness, deformity, swelling or erythema Neuro: AOx3. Normal speech. Ambulating with steady gait. Course Course Course Narrative: 1041 -- CBC without leukocytosis or left shift. No anemia. H&H stable. Chemistry without acute electrolyte abnormality requiring intervention. No GLENN. Negative COVID, flu, RSV. Negative strep. Chest x-ray showing findings consistent with bronchitis. > provided with prednisone and 1st dose of azithromycin in the ED today. Lungs are clear, I do not see an indication for breathing treatment today. > prednisone, azithromycin, albuterol and Tessalon Perles sent to pharmacy for treatment of bronchitis. Patient has remained stable throughout ED visit today. Discussed worrisome signs and symptoms and when to return to the ED. All questions answered at this time. Patient is agreeable with disposition and stable for discharge. Medications Administered Discontinued Medications Generic Name Dose Route Start Last Admin Trade Name Carlos PRN Reason Stop Dose Admin Azithromycin 500 mg 10/11/24 10:08 10/11/24 10:22 Azithromycin 500 Mg Tablet PO 10/11/24 10:09 500 mg ONCE ONE Administration Prednisone 40 mg 10/11/24 10:08 10/11/24 10:22 Prednisone 20 Mg Tablet PO 10/11/24 10:09 40 mg ONCE ONE Administration Medical Decision Making Medical Decision Making [facility] Narrative: This is a 49 year old female with pmhx significant for asthma and GERD who [facility] cough x4 days. She is tachycardic to 107, vitals are otherwise WNL. She is afebrile. She is nontoxic-appearing and in no acute distress. No respiratory distress or tripoding. Lungs are clear throughout. Differential diagnosis includes viral syndrome, bronchitis, pneumonia. Less likely PE, pleural effusion. Unlikely ACS, arrhythmia. Screening labs, viral swabs, chest x-ray and re-evaluation. Differential Diagnosis Differential Diagnoses: The differential diagnosis associated with the presentation includes As above Admission/Observation Not indicated Lab Data [facility] Lab Attestation statement: I reviewed the patient's lab results. As above 10/11/24 09:26 10/11/24 09:26 Labs: Lab Results 10/11/24 Range/Units 09:26 WBC 6.5 (4.8-10.8) X10*3/uL RBC 3.83 L (4.20-5.50) X10*6/uL Hgb 13.2 (12.0-16.0) g/dl Hct 37.6 (37.0-47.0) % MCV 98.2 H (80.0-98.0) fL MCH 34.5 H (27.0-33.0) pg MCHC 35.1 H (31.0-35.0) g/dl RDW 12.8 (11.0-16.0) % Plt Count 205 (160-400) X10*3/uL MPV 10.8 (9.4-12.3) fL Immature Gran % (Auto) 0.6 H (0.0-0.4) % Neut % (Auto) 72.5 (45-73) % Lymph % (Auto) 13.5 L (20-40) % [place] % (Auto) 8.6 (2-11) % Eos % (Auto) 4.3 H (0-4) % Baso % (Auto) 0.5 (0-2) % Lymph # (Auto) 0.9 L (1.2-4.9) X10*3/uL [place] # (Auto) 0.6 (0.1-1.2) X10*3/uL Eos # (Auto) 0.3 (0.0-0.4) X10*3/uL Baso # (Auto) 0.0 (0.0-0.2) X10*3/uL Abs Immat Gran (auto) 0.04 H (0.00-0.03) X10*3/uL Absolute Neuts (auto) 4.7 (2.0-8.3) x10*3/uL Absolute Nucleated RBC 0.000 (0.0-0.012) X10*3/uL Nucleated RBC % (auto) 0.0 (0.0-0.2) /100WBC Sodium 141 (135-145) mmol/L Potassium 3.9 (3.3-5.1) mmol/L Chloride 108 (96-108) mmol/L Carbon Dioxide 22 (22-29) mmol/L Anion Gap 15 (12-20) BUN 8 L (9-16) mg/dL Creatinine 0.79 (0.5-1.4) mg/dL Estim Creat Clear Calc 84.9 Estimated GFR > 60 Random Glucose 133 H (60-115) mg/dL Calcium 8.8 D (8.4-10.2) mg/dL Influenza Type A (PCR) NEGATIVE (Negative) Influenza Type B (PCR) NEGATIVE (Negative) RSV RNA Qual (PCR) NEGATIVE (Negative) SARS-CoV-2 RNA (RT-PCR) NEGATIVE (Negative) S. pyogenes GrpA MICHELLE Negative (Negative) Independent Interpretation I performed an independent interpretation of an: Plain X-Ray Interpretation: Chest x-ray showing bronchial wall thickening, no infiltrate or consolidation Radiology Impression Discussion of test interpretation with radiology: I have reviewed the radiologist's reading. Radiologist Impression: Procedure(s): XR chest 2V Accession Number(s): [id number] cc: Generic ED Physician; Glo Zaidi MD~ CLINICAL HISTORY: cough, fever, tightness 2 view chest x-ray Comparison: None Findings: Lungs are well inflated. Cardiac silhouette is within normal limits. Mild bilateral perihilar bronchial wall thickening with perihilar interstitial prominence. No focal areas of consolidation. No pleural effusion or pneumothorax. IMPRESSION: Perihilar bronchitis. This document has been electronically signed by: Manuel Khan MD on 10/11/2024 09:52:17 External Record Review External record reviewed: Inpatient record Prescription Management I considered prescription management with: Antibiotic (Azithromycin) and Other (Tessalon, prednisone, albuterol) Chronic Conditions Patient?s care impacted by: Other (Asthma) Social Determinants Patient?s care significantly limited by Social Determinants of Health including: Other Social Determinant of Health Critical Care Time Critical Care Time Critical Care Time: No Discharge Plan Discharge Clinical Impression: Acute bronchitis Patient Disposition: Home, Self-Care Instructions: Acute Bronchitis (ED) Additional Instructions: The x-ray for chest shows findings consistent with bronchitis. See home care instructions. There is no evidence of pneumonia. Your blood work is reassuring. You tested negative for covid, flu, and rsv.? Take prednisone 20 mg pills,2 pills once a day for 4 days.? This is an anti-inflammatory medication which will reduce the inflammation in your breathing tubes. You already received today's dose in the ED today. While you?are taking prednisone, do not take any NSAIDs (Motrin, Advil, ibuprofen, Aleve, naproxen). This can increase risk of GI bleeding. If you are diabetic, please monitor your sugars at home as this can increase them. Take Azithromycin as prescribed x4 days. You received today's dose in the emergency department today. Tessalon Perles (benzonate) have been sent to your pharmacy for cough. Follow-up with your primary doctor this week. Return to the ED with new or worsening symptoms. In the case of an emergency call 911. Prescriptions: New azithromycin 250 mg tablet 250 mg PO DAILY 4 Days Qty: 4 0RF Rx Instructions: start on day 2 of therapy prednisone 20 mg tablet 40 mg PO DAILY 4 Days Qty: 8 0RF benzonatate 100 mg capsule 100 mg PO BID PRN (Reason: cough) Qty: 20 0RF albuterol sulfate 90 mcg/actuation aerosol powdr breath activated 2 inh inhalation Q20M PRN (Reason: shortness of breath or wheezing) Qty: 1 0RF No Action fluconazole 150 mg tablet 150 mg PO Q OTHER DAY 3 Days Qty: 2 0RF Rx Instructions: administer on day 1 of therapy albuterol sulfate [Ventolin HFA] 90 mcg/actuation HFA aerosol inhaler 1 inh inhalation Q4-6H PRN (Reason: shortness of breath or wheezing) Qty: 8.5 0RF clonazepam 0.5 mg tablet 1 tab PO DAILY omeprazole 20 mg capsule,delayed release(DR/EC) 1 cap PO DAILY fluoxetine 20 mg capsule 1 cap PO QAM cholecalciferol (vitamin D3) [Vitamin D3] 25 mcg (1,000 unit) capsule 1 cap PO DAILY metronidazole 500 mg tablet 1 tab PO BID oxycodone-acetaminophen [Percocet] 5-325 mg tablet 1 tab PO Q4-6H PRN (Reason: pain, severe) Qty: 30 0RF ibuprofen 600 mg tablet 600 mg PO Q6H PRN (Reason: pain) Qty: 30 0RF fluticasone propionate 50 mcg/actuation spray,suspension 2 spray intranasal DAILY Qty: 9.9 2RF Rx Instructions: administer into each nostril Referrals: Glo Zaidi MD [Primary Care Provider] - Stand Alone Forms: Work/School Release Interventions: ED Discharge Assessment Last Done: 10/11/24 10:35 Discharge Date/Time: 10/11/24 10:36 Print Language: Setswana
[2024-10-11 09:53] LABS: Anion Gap 15 (12-20); Blood Urea Nitrogen 8 mg/dL (9-16); Calcium 8.8 mg/dL (8.4-10.2); Carbon Dioxide 22 mmol/L (22-29); Chloride 108 mmol/L (96-108); Creatinine Clr Calc Pharmacy 84.9; Estimated Glomerular Filt Rate > 60; Glucose Random 133 mg/dL (60-115); Potassium 3.9 mmol/L (3.3-5.1); Sodium 141 mmol/L (135-145)
--- NOTE | 2024-10-11 10:10 | PC.NURSE ---
patient a&ox3, vss, labs drawn, xray performed, pt awaiting provider
[2024-10-11 10:13] VITALS: O2SAT 96
[2024-10-11 10:14] LABS: Influenza A PCR NEGATIVE (Negative); Influenza B PCR NEGATIVE (Negative); Resp Syncy Virus RNA Qual PCR NEGATIVE (Negative); SARS COV2 PCR INHOUSE NEGATIVE (Negative)
[2024-10-11] MEDS: Azithromycin 500 MG TABLET PO (10:22)
[2024-10-11] MEDS: predniSONE 20 MG TABLET 40 MG PO (10:22)
--- NOTE | 2024-10-11 10:24 | PC.NURSE ---
pt medicated per order
[2024-10-11 10:35] VITALS: BP 122/68; PULSE 99; RESP 18; TEMP 36.8; O2SAT 96
== END 2024-10-11 10:36 | disposition home or self-care (01) ==
PROVIDERS: Emergency Provider Emergency Medicine; PCP Family Medicine
DX: J20.9 Acute bronchitis, unspecified (principal); R05.3 Chronic cough; J45.909 Unspecified asthma, uncomplicated; F17.210 Nicotine dependence, cigarettes, uncomplicated; Z03.818 Encounter for observation for suspected exposure to other biological agents ruled out
CPT/HCPCS: 0241U; 71046; 80048; 85025; 87651; 99283

== ENCOUNTER 2024-12-25 16:35 | Outpatient (REF) | payer OTHER, SELFPAY ==
--- OUTSIDE RECORDS SUMMARY | 2024-12-25 10:30 | XMS_ITS | Encounter Summary ---
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 Details Date Type Department Care Team (Latest Contact Info) Description 12/25/2024 10:30 AM EDT Clinical Support [facility] [address] [place] [address] Geraldine Oliveira, BETSY [address] [place] [address] Long-term current use of benzodiazepine Social History Tobacco Use Types Packs/Day Years Used Date Smoking Tobacco: Former Cigarettes Passive Smoke Exposure: Current Smokeless Tobacco: Never Depression Answer Date Recorded Patient Health Questionnaire-9 Score 7 10/08/2024 Patient Health Questionnaire-9 Score 7 10/08/2024 Last PHQ-9: Questionnaire Data Not on file 0 10/08/2024 Housing Stability Answer Date Recorded What is your housing situation today? Not on huber e 10/08/[address] you li ve. Do you have problems with any of the following? None of the above 10/08/2024 Food Insecurity Answer Date Recorded Within the past 12 months, y ou worried that your food would run out before you got money to buy more: Never True 10/08/2024 Within the past 12 months,th e food you bought just didn't last and you didn't have enough money to get more: Never True 03/2025 Transportation Answer Date Recorded In the past 12 months, has l ack of transportation kept you from medical appts, meetings, work or from getting things needed for daily living? No 10/08/2024 Utilities Answer Date Recorded In the past 12 months, has t he electric, gas, oil or water company threatened to shut off services in your home? No 10/08/2024 Depression Answer Date Recorded Patient Health Questionnaire-2 Score 2 10/08/2024 Internet Access Answer Date Recorded Internet Access Q1 Yes 10/08/2024 Internet Access Q2 Not on file 10/08/2024 Comments Unknown Sex and Gender Information Value Date Recorded Sex Assigned at Female 02/26/2022 10:14 AM EDT Legal Sex Female 10:14 AM EDT Gender Identity Female 02/26/2022 10:14 AM EDT Sexual Orientation Straight 02/26/2022 10 :14 AM EDT documented as of this encounter Progress Notes * Geraldine Oliveira RN - 12/25/2024 10:30 AM EDT SUBJECTIVE: Shell Mobley is a 49 y.o. 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 The patient last took Clonazepam (Klonopin) on: 12/25/24 Medication effective: Yes OBJECTIVE: COPYWRITER checked: 12/25/2024 Pill count completed for Clonazepam (Klonopin), count today is 16 , anticipated count should be 0, this is as expected. 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 pt educated of the risks associated with the combination of ETOH and BZOs, verbalized understanding. Illicit substances: Denies Marijuana use: No Lab Results Component Value Date POCTHC Negative 12/25/2024 POCCOCAINEUR Negative 12/25/2024 POCOPIATEUR Negative 12/25/2024 DOAUR Negative 12/25/2024 POCAMPHETAMI Negative 12/25/2024 POCBENZODIUR Negative 12/25/2024 POCBARBSCRN Negative 12/25/2024 POCMETHADOUR Negative 12/25/2024 POCBUPSCRN Negative 12/25/2024 POCTCAUR Negative 12/25/2024 POCMDMAUR Negative 12/25/2024 POCOXYCODONE Negative 12/25/2024 POCPHENCYCUR Negative 12/25/2024 PROPOXUR Negative 12/25/2024 FENTANYLURIN Negative 12/25/2024 BZO negative. Sending it out to the lab for confirmation. Pt states she takes med every day. ASSESSMENT: Encounter Diagnosis Name Primary? 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 Shell Mobley has verbalized understanding of care plan. Future Appointments Date Time Provider Department Center 04/14/2025 3:15 PM Geraldine Oliveira RN [facility] Geraldine Oliveira RN [1] Current Outpatient Medications: albuterol 108 (90 Base) MCG/ACT inhaler, INHALE 2 PUFFS EVERY 4 - 6 HOURS NEEDED FOR ASTHMA., Disp: 18 g, Rfl: 1 cetirizine (ZyrTEC) 10 MG tablet, Take 1 tablet (10 mg) by mouth in the morning., Disp: 90 tablet, Rfl: 3 cholecalciferol (Vitamin D-3) 25 MCG (1000 UT) capsule, take 1 by Oral route every day, Disp: 90 capsule, Rfl: 3 clonazePAM (KlonoPIN) 0.5 MG tablet, Take 1 tablet by mouth once daily, and may take additional 1 tablet as needed for panic attack., Disp: 60 tablet, Rfl: 0 cyanocobalamin (Vitamin B-12) 1000 MCG tablet, Take 1 tablet (1,000 mcg) by mouth in the morning., Disp: 90 tablet, Rfl: 3 fluconazole (Diflucan) 150 MG tablet, Take 1 tablet by mouth once. May repeat in 1 week if still symptomatic., Disp: 2 tablet, Rfl: 0 FLUoxetine (PROzac) 20 MG capsule, TAKE 1 CAPSULE BY MOUTH EVERY DAY IN THE MORNING, Disp: 90 capsule, Rfl: 1 fluticasone (Flonase) 50 MCG/ACT nasal spray, ADMINISTER 1-2 SPRAYS INTO EACH NOSTRIL IN THE MORNING. SHAKE GENTLY. BEFORE FIRST USE, PRIME PUMP. AFTER USE, CLEAN TIP AND REPLACE CAP., Disp: 48 mL, Rfl: 3 Fluticasone-Salmeterol 250-50 MCG/ACT aerosol powder , Inhale 1 puff 2 times daily., Disp: 180 each, Rfl: 3 omeprazole (PriLOSEC) [address] capsule, Take 1 capsule (20 mg) by mouth before breakfast. Do not crush or chew., Disp: 90 capsule, Rfl: 3 documented in this encounter Plan of Treatment Upcoming Encounters Date Type Department Care Team (Late st Contact Info) Description 04/14/2025 3:15 PM EST Clinical Support [facility] [address] [place] [address] Geraldine Oliveira RN [address] [place] [address] Scheduled Orders Name Type Priority Associated Diagnoses Orde r Schedule Drug Monitoring, Benzodiazepines, Quantitative, Urine Lab Routine Long-term current use of benzodiazepine Ordered: 12/25/2024 documented as of this encounter Procedures Procedure Name Priority Date/Time Associated Diagnosis Comments POCT MARC-14 URINE DRUG SCREEN Routine 12/25/2024 10:55 AM EDT Long-term current use of benzodiazepine documented in this encounter Results * POCT MARC-14 Urine Drug Screen (12/25/2024 10:55 AM EDT) THC Negative Negative Cocaine Screen, Urine Negative Negative Opiate Screen, Urine Negative Negative Methamphetamine Screen Urine Negative Negative Amphetamine Screen, Urine Negative Negative Benzodiazepines Screen, Urine Negative Negative Barbiturate Screen, Urine Negative Negative Methadone Screen, Urine Negative Negative Buprenophine Screen, Urine Negative Negative TCA, Urine Negative Negative MDMA Urine Negative Negative ng/mL Oxycodone Screen, Urine Negative Negative Phencyclidine (PCP), Urine Negative Negative Propoxyphene, Urine Negative Negative Fentanyl, Urine Negative Negative Urine Urine specimen obtained by clean catch procedure / Unknown 12/25/2024 10:55 AM EDT Narrative Geraldine Oliveira RN - 12/25/2024 10:55 AM EDT .UTOX cup Lot#[id number] Exp. 02/02/26 Internal Pass Control Glo Zaidi MD POINT OF CARE TEST ENTER/EDIT OR DERABLES Final Result documented in this encounter Visit Diagnoses Diagnosis Long-term current use of benzodiazepine documented in this encounter Additional Health Concerns Assessment Noted Time PHQ-9 Depression Total Score: 7 10/09/19 25 3:53 PM EDT documented as of this encounter Care Teams Academic Support Assistant Relationship Specialty Start Date End Date Glo Zaidi MD [address] [place] [address] PCP - General Family Medicine 12/08/14 documented as of this encounter
--- OUTSIDE RECORDS SUMMARY | 2024-12-25 16:37 | XMS_ITS | Encounter Summary ---
Author Organization [employer] Address [address] [place] [address] [address], [place] [address] Care Team Providers Care Multi Township Assessor Name Role Phone Glo Zaidi MD Primary Care Provider Reason for Visit * Reason Onset Date Comments Medication Question 12/24/2022 Encounter Details Date Type Department Care Team ([facility] st Contact Info) Description 12/24/2022 Telephone [facility] [address] [place], [place] [phone] Glo Zaidi MD [address] [place] [address] Medication Question Social History Tobacco Use Types [...] Description 04/14/2025 3:15 PM EST Clinical Support [facility] [address] [place] [address] Geraldine Oliveira, BETSY [address] [place] [address] documented as of this encounter Visit Diagnoses Not on filedocumented in this encounter Additional Health Concerns Assessment Noted Time PHQ-9 Depression Total Score: 7 05/01/19 23 2:21 PM EST documented as of this encounter Care Teams Multi Township Assessor Relationship Specialty Start Date End Date Glo Zaidi MD [address] [place] [id number] PCP - General Family Medicine 12/08/14 documented as of this encounter
--- OUTSIDE RECORDS SUMMARY | 2024-12-25 16:37 | XMS_ITS | Encounter Summary ---
Author Organization [employer] Address [address] [place] [address] [address], [place] [address] Care Team Providers Care Stationary Equipment Mechanic Name Role Phone Glo Zaidi MD Primary Care Provider [phone] Reason for Visit * Reason Onset Date Comments Med Refill 01/07/2023 Encounter Details Date Type Department Care Team ([facility] st Contact Info) Description 01/07/2023 Telephone [facility] MEDICINE 230 [place], [place] [phone] Glo Zaidi MD 230 [place] [address] Med Refill Social History Tobacco Use Types [...] (KlonoPIN) 0.5 MG tablet Please sent to [facility]/pharmacy #[id number] - [place], [place] - [address] documented in this encounter Plan of Treatment Upcoming Encounters Date Type Department Care Team (Late st Contact Info) Description 04/14/2025 3:15 PM EST Clinical Support [facility] MED & PEDS 505 [place] [address] Geraldine Oliveira, RN 505 [place] [address] documented as of this encounter Visit Diagnoses Not on filedocumented in this encounter Additional Health Concerns Assessment Noted Time PHQ-9 Depression Total Score: 7 05/01/19 23 2:21 PM EST documented as of this encounter Care Teams Stationary Equipment Mechanic Relationship Specialty Start Date End Date Glo Zaidi MD 230 [place] [address] PCP - General Family Medicine 12/08/14 documented as of this encounter
--- OUTSIDE RECORDS SUMMARY | 2024-12-25 16:37 | XMS_ITS | Encounter Summary ---
Author Organization [employer] Address [address] [facility] 7[address] [place] [address] Care Team Providers Care Dianeticist Name Role Phone Glo Zaidi MD Primary Care Provider [phone] Reason for Visit * Reason Onset Date Comments Med Refill 01/08/2024 Encounter Details Date Type Department Care Team (Late st Contact Info) Description 01/08/2024 Telephone [facility] MEDICINE 230 [place], [place] [phone] Glo Zaidi MD 230 [place] [address] Med Refill Social History Tobacco Use Types [...] 0.5 MG tablet To be sent to: [facility]/pharmacy #[id number] [facility] [address] documented in this encounter Plan of Treatment Upcoming Encounters Date Type Department Care Team (Late st Contact Info) Description 04/14/2025 3:15 PM EST Clinical Support [facility] MED & PEDS 505 [place] [address] Geraldine Oliveira, RN 505 [place] [address] documented as of this encounter Visit Diagnoses Not on filedocumented in this encounter Additional Health Concerns Assessment Noted Time PHQ-9 Depression Total Score: 7 08/05/19 24 9:56 AM EDT documented as of this encounter Care Teams Dianeticist Relationship Specialty Start Date End Date Glo Zaidi MD 230 [place] [address] PCP - General Family Medicine 12/08/14 documented as of this encounter
--- OUTSIDE RECORDS SUMMARY | 2024-12-25 16:37 | XMS_ITS | Patient Health Record ---
Author Organization [facility] Address [address] [place] [address] Care Team Providers Care Supervisor Particleboard Name Role Phone Dejuan PLAZA, Glo Primary Care Provider Fabio Gibbs [phone] Allergies No Known Allergies Reason For Referral [...] Problem Status W/U Status Risk Notes Problem 611656293 Abdominal bloati ng (R14.0) Active confirmed Problem 918668488 Irritable bowel syndrome with diarrhea (K58.0) Active confirmed Problem Gastroesophageal reflux disease (K21.9) Active confirmed Problem 556092573 Gallstones (K80.20) Active confirmed Problem Gastritis (6897006) Gastritis (K29.70) Active confirmed Problem 16705821 Abdominal discomfort, generalized (R10.84) Active confirmed Problem 687418221 Gastroesophageal reflux disease, unspecified whether esophagitis present (K21.9) Active confirmed Plan Of Treatment Pending Test Test Name Order Date CELIAC PANEL #10 11/15/2020 US ABD 11/15/2020 Future Test Test Name Order Date UPPER GI ENDOSCOPY 11/15/2020 COLONOSCOPY 11/15/2020 Insurance Providers Payer Name Payer Address Payer Phone Subscriber Number Group Number Insured Name Patient Relationship to Insured Coverage Start Date Coverage End Date [facility] [address] [place] [phone] [id number] ADRIÁN Z, EDEN Self - patient is [...]
--- OUTSIDE RECORDS SUMMARY | 2024-12-25 16:37 | XMS_ITS | Encounter Summary ---
Author Organization [employer] Address 75 [facility] 7 [place] [address] Care Team Providers Care Business Services Manager Name Role Phone Glo Zaidi MD Primary Care Provider [phone] Encounter Details Date Type Department Care Team (Late st Contact Info) Description 12/25/2022 Orders Only [facility] MEDICINE 230 [place], [place] [phone] Glo Zaidi MD 230 [place], [place] [phone] Tobacco dependence (Primary Dx) Social History Tobacco [...] 3:15 PM EST Clinical Support [facility] MED & PEDS 505 [place], [place] [phone] Geraldine Oliveira, RN 505 [place], [place] [phone] documented as of this encounter Visit Diagnoses Diagnosis Tobacco dependence- Primary Tobacco use disorder documented in this encounter Additional Health Concerns Assessment Noted Time PHQ-9 Depression Total Score: 7 05/01/19 23 2:21 PM EST documented as of this encounter Care Teams Business Services Manager Relationship Specialty Start Date End Date Glo Zaidi MD [address] [place] [address] PCP - General Family Medicine 12/08/14 documented as of this encounter
--- OUTSIDE RECORDS SUMMARY | 2024-12-25 16:37 | XMS_ITS | Encounter Summary ---
Author Organization [employer] Address 75 [facility] 7t [place] [address] Care Team Providers Care Crystalizer Tender Name Role Phone Glo Zaidi MD Primary Care Provider [phone] Reason for Visit * Reason Onset Date Comments Med Refill 02/11/2024 Encounter Details Date Type Department Care Team ([facility] st Contact Info) Description 02/11/2024 Telephone [facility] MEDICINE 230 [place], [place] [phone] Glo Zaidi MD 230 [place] [address] Med Refill Social History Tobacco Use Types [...] 0.5 MG tablet To be sent to: [facility]/pharmacy #[id number] [facility] [address] documented in this encounter Plan of Treatment Upcoming Encounters Date Type Department Care Team (Late st Contact Info) Description 04/14/2025 3:15 PM EST Clinical Support [facility] MED & PEDS 505 [place] [address] Geraldine Oliveira, RN 505 [place] [address] documented as of this encounter Visit Diagnoses Not on filedocumented in this encounter Additional Health Concerns Assessment Noted Time PHQ-9 Depression Total Score: 7 08/05/19 24 9:56 AM EDT documented as of this encounter Care Teams Crystalizer Tender Relationship Specialty Start Date End Date Glo Zaidi MD 230 [place] [address] PCP - General Family Medicine 12/08/14 documented as of this encounter
--- OUTSIDE RECORDS SUMMARY | 2024-12-25 16:38 | XMS_ITS | Encounter Summary ---
Author Organization [employer] Address [address] [facility] [address] 7[address] [place] [address] Care Team Providers Care Meter Reader Inspector Name Role Phone Glo Zaidi MD Primary Care Provider [phone] Encounter Details Date Type Department Care Team (Latest Contact Info) Description 12/25/2024 Travel Social History Tobacco Use Types Packs/Day Years [...] Description 04/14/2025 3:15 PM EST Clinical Support [facility] MED & PEDS 505 [place] [address] Geraldine Oliveira, RN 505 [place] [address] documented as of this encounter Visit Diagnoses Not on filedocumented in this encounter Additional Health Concerns Assessment Noted Time PHQ-9 Depression Total Score: 7 10/09/19 25 3:53 PM EDT documented as of this encounter Care Teams Meter Reader Inspector Relationship Specialty Start Date End Date Glo Zaidi MD 230 [place] [address] PCP - General Family Medicine 12/08/14 documented as of this encounter
--- OUTSIDE RECORDS SUMMARY | 2024-12-25 16:38 | XMS_ITS | Encounter Summary ---
Author Organization [employer] Address 75 [facility] 7t [place] [address] Care Team Providers Care Metal Cut Off Saw Tender Name Role Phone Glo Zaidi MD Primary Care Provider [phone] Encounter Details Date Type Department Care Team ([facility] st Contact Info) Description 12/25/2024 Telephone [facility] CH[facility] MED & PEDS 505 [place] [address] Geraldine Oliveira RN 505 [place] [address] Social History Tobacco Use Types Packs/Day Years [...] encounter Miscellaneous Notes * Telephone Encounter - Geraldine Oliveira RN - 12/25/2024 11:11 AM EDT Alex maxi neg. Bzo, pt states she takes it every day. Sending it out to the lab for bzo confirmation. documented in this encounter Plan of Treatment Upcoming Encounters Date Type Department Care Team (Late st Contact Info) Description 04/14/2025 3:15 PM EST Clinical Support [facility] MED & PEDS 505 [place] [address] Geraldine Oliveira, RN 505 [place] [address] documented as of this encounter Visit Diagnoses Not on filedocumented in this encounter Additional Health Concerns Assessment Noted Time PHQ-9 Depression Total Score: 7 10/09/19 25 3:53 PM EDT documented as of this encounter Care Teams Metal Cut Off Saw Tender Relationship Specialty Start Date End Date Glo Zaidi MD 230 [place] [address] PCP - General Family Medicine 12/08/14 documented as of this encounter
--- OUTSIDE RECORDS SUMMARY | 2024-12-25 16:38 | XMS_ITS | Encounter Summary ---
Author Organization [email or web address] Address 75 [facility] 7 [place] [address] Care Team Providers Care Tractor Trailer Driver Name Role Phone Glo Zaidi MD Primary Care Provider [phone] Encounter Details Date Type Department Care Team ([facility] st Contact Info) Description 05/01/2022 Abstract [facility] MEDICINE 230 [place], [place] [phone] Glo Zaidi MD 230 [place], [place] [phone] Social History Tobacco Use Types Packs/Day Years [...] things Several days 05/01/2022 2:21 PM [place] Feeling down, depressed, or hopeless More [...] [facility] MED & PEDS [address] [place] [address] Geraldine Oliveira, RN 505 [place] [address] documented as of this encounter Visit Diagnoses Not on filedocumented in this encounter Additional Health Concerns Assessment Noted Time PHQ-9 Depression Total Score: 7 05/01/19 23 2:21 PM EST documented as of this encounter Care Teams Tractor Trailer Driver Relationship Specialty Start Date End Date Glo Zaidi MD [address] [place] [address] PCP - General Family Medicine 12/08/14 documented as of this encounter
--- OUTSIDE RECORDS SUMMARY | 2024-12-25 16:38 | XMS_ITS | Encounter Summary ---
Author Organization [employer] Address 75 [facility] 7t [place] [address] Care Team Providers Care Study Manager Name Role Phone Glo Zaidi MD Primary Care Provider [phone] Reason for Visit * Reason Onset Date Comments Med Refill 10/20/2024 Encounter Details Date Type Department Care Team ([facility] st Contact Info) Description 10/20/2024 Telephone [facility] MEDICINE 230 [place], [place] [phone] Glo Zaidi MD 230 [place] [address] Med Refill Social History Tobacco Use Types [...] Telephone Encounter - Glo Zaidi MD - 10/22/2024 2:22 PM EDT Script sent. Patient recently took 2 different antibiotics. * Telephone Encounter - Tawana Pate LPN - 10/20/2024 2:41 PM EDT Please review request below. * Telephone Encounter - Neelam Alvarado - 10/20/2024 2:37 PM EDT TC from pt requesting medication refill. Medications needing refill : - diflucan -fluconazol To be sent to: - [facility]/pharmacy #[id number] [place], [place] - [address] documented in this encounter Plan of Treatment Upcoming Encounters Date Type Department Care Team ([facility] st Contact Info) Description 04/14/2025 3:15 PM EST Clinical Support [facility] MED & PEDS 505 [facility] [place] [address] Geraldine Oliveira RN [address] [place] [address] documented as of this encounter Visit Diagnoses Not on filedocumented in this encounter Additional Health Concerns Assessment Noted Time PHQ-9 Depression Total Score: 7 10/09/19 25 3:53 PM EDT documented as of this encounter Care Teams Study Manager Relationship Specialty Start Date End Date Glo Zaidi MD 230 [place] [address] PCP - General Family Medicine 12/08/14 documented as of this encounter
--- OUTSIDE RECORDS SUMMARY | 2024-12-25 16:38 | XMS_ITS | Encounter Summary ---
Author Organization [employer] Address 75 [facility] 7t [place] [address] Care Team Providers Care Video Camera Operator Name Role Phone Glo Zaidi MD Primary Care Provider [phone] Encounter Details Date Type Department Care Team ([facility] st Contact Info) Description 08/06/2023 Orders [address] [facility] MEDICINE 230 [place], [place] [phone] Glo Zaidi MD 230 [place], [place] [phone] Vitamin B12 deficiency Social History Tobacco Use [...] Description 04/14/2025 3:15 PM EST Clinical Support [facility] MED & PEDS 505 [place] [address] Geraldine Oliveira, RN 505 [place] [address] documented as of this encounter Visit Diagnoses Diagnosis Vitamin B12 deficiency Other B-complex deficiencies documented in this encounter Additional Health Concerns Assessment Noted Time PHQ-9 Depression Total Score: 7 08/05/19 24 9:56 AM EDT documented as of this encounter Care Teams Video Camera Operator Relationship Specialty Start Date End Date Glo Zaidi MD 230 [place] [address] PCP - General Family Medicine 12/08/14 documented as of this encounter
--- OUTSIDE RECORDS SUMMARY | 2024-12-25 16:38 | XMS_ITS | Encounter Summary ---
Author Organization [employer] Address 75 [facility] 7 [place] [address] Care Team Providers Care Landscape Nurseryman Name Role Phone Glo Zaidi MD Primary Care Provider [phone] Reason for Visit * Reason Onset Date Comments Results 10/12/2024 Encounter Details Date Type Department Care Team ([facility] st Contact Info) Description 10/12/2024 Telephone [facility] MEDICINE 230 [place], [place] [phone] Glo Zaidi MD 230 [place], [place] [phone] Results Social History Tobacco Use Types Packs/Day Years [...] Telephone Encounter - Glo Zaidi MD - 10/12/2024 2:50 PM EDT Called x 3, straight to voice mail. * Telephone Encounter - Wing Debbie RN - 10/12/2024 1:44 PM EDT Tc to pt would relay message for PCP to call back to explain elevated liver lab results. Pt verbalized understanding and agreement with plan. Stated she will be home all day today. * Telephone Encounter - Naman Stephenson - 10/12/2024 10:53 AM EDT Tc from pt returning call regarding Xray results. documented in this encounter Plan of Treatment Upcoming Encounters Date Type Department Care Team (Late st Contact Info) Description 04/14/2025 3:15 PM EST Clinical [facility] MED [facility]ED[facility] 505 [place] [address] Geraldine Oliveira, RN 505 [place] [address] documented as of this encounter Visit Diagnoses Not on filedocumented in this encounter Additional Health Concerns Assessment Noted Time PHQ-9 Depression Total Score: 7 10/09/19 25 3:53 PM EDT documented as of this encounter Care Teams Landscape Nurseryman Relationship Specialty Start Date End Date Glo Zaidi MD 230 [place] [address] PCP - General Family Medicine 12/08/14 documented as of this encounter
--- OUTSIDE RECORDS SUMMARY | 2024-12-25 16:38 | XMS_ITS | Encounter Summary ---
Author Organization [employer] Address 75 [facility] 7t [place] [address] Care Team Providers Care Cigar Tobacco Processing Supervisor Name Role Phone Glo Zaidi MD Primary Care Provider [phone] Encounter Details Date Type Department Care Team ([facility] st Contact Info) Description 10/22/2024 Orders Only [facility] MEDICINE 230 [place], [place] [phone] Glo Zaidi MD 230 [place], [place] [phone] Social History Tobacco Use Types Packs/Day Years [...] 04/14/2025 3:15 PM EST Clinical Support [facility] MED & PEDS 505 [place] [address] Geraldine Oliveira, RN 505 [place] [address] documented as of this encounter Visit Diagnoses Not on filedocumented in this encounter Additional Health Concerns Assessment Noted Time PHQ-9 Depression Total Score: 7 10/09/19 25 3:53 PM EDT documented as of this encounter Care Teams Cigar Tobacco Processing Supervisor Relationship Specialty Start Date End Date Glo Zaidi MD 230 [place] [address] PCP - General Family Medicine 12/08/14 documented as of this encounter
--- OUTSIDE RECORDS SUMMARY | 2024-12-25 16:38 | XMS_ITS | Encounter Summary ---
Author Organization [employer] Address 75 [facility] 7[address] [place] [address] Care Team Providers Care Photonics Engineering Technician Name Role Phone Glo Zaidi MD Primary Care Provider [phone] Reason for Visit * Reason Onset Date Comments Med Refill 07/15/2024 Encounter Details Date Type Department Care Team ([facility] st Contact Info) Description 07/15/2024 Telephone [facility] MEDICINE 230 [place], [place] [phone] Glo Zaidi MD 230 [place] [address] Med Refill Social History Tobacco Use Types [...] 0.5 MG tablet To be sent to: [facility]/pharmacy #[id number] [facility] [address] documented in this encounter Plan of Treatment Upcoming Encounters Date Type Department Care Team (Late st Contact Info) Description 04/14/2025 3:15 PM EST Clinical Support [facility] CH[facility] MED & PEDS 505 [place] [address] Geraldine Oliveira, RN 505 [place] [address] documented as of this encounter Visit Diagnoses Not on filedocumented in this encounter Additional Health Concerns Assessment Noted Time PHQ-9 Depression Total Score: 7 08/05/19 24 9:56 AM EDT documented as of this encounter Care Teams Photonics Engineering Technician Relationship Specialty Start Date End Date Glo Zaidi MD 230 [place] [address] PCP - General Family Medicine 12/08/14 documented as of this encounter
--- OUTSIDE RECORDS SUMMARY | 2024-12-25 16:38 | XMS_ITS | Encounter Summary ---
Author Organization [employer] Address [address] [place] [address] Care Team Providers Care Sealer Sander Name Role Phone Glo Zaidi MD Primary Care Provider [phone] Reason for Visit * Reason Onset Date Comments Appointment Request 04/17/2022 Encounter Details Date Type Department Care Team ([facility] st Contact Info) Description 04/17/2022 Telephone [facility] MEDICINE 230 [place], [place] [phone] Glo Zaidi MD 230 [place] [address] Appointment Request Social History Tobacco Use Types [...] regarding scheduling APPT Please contact pt at [phone] * Telephone Encounter - Jose Francisco Rosas - 04/17/2022 9:52 AM EST Tc from pt requesting a call back regarding voice message left regarding scheduling APPT Please contact pt at [phone] documented in this encounter Plan of Treatment Upcoming Encounters Date Type Department Care Team ([facility] st Contact Info) Description 04/14/2025 3:15 PM EST Clinical Support [facility] MED & PEDS 505 [place] [address] Geraldine Oliveira, RN 505 [place] [address] documented as of this encounter Visit Diagnoses Not on filedocumented in this encounter Care Teams Sealer Sander Relationship Specialty Start Date End Date Glo Zaidi MD [address] [place] [address] PCP - General Family Medicine 12/08/14 documented as of this encounter
--- OUTSIDE RECORDS SUMMARY | 2024-12-25 16:38 | XMS_ITS | Encounter Summary ---
Author Organization [employer] Address 75 [facility] 7t [place] [address] Care Team Providers Care Photographers' Model Name Role Phone Glo Zaidi MD Primary Care Provider [phone] Reason for Visit * Reason Onset Date Comments Med Refill 05/01/2024 Encounter Details Date Type Department Care Team (Late st Contact Info) Description 05/01/2024 Telephone [facility] MEDICINE 230 [place], [place] [phone] Glo Zaidi MD 230 [place] [address] Med Refill Social History Tobacco Use Types [...] clonazePAM (KlonoPIN) 0.5 MG tablet till May. [phone] * Telephone Encounter - Geraldine Oliveira RN - 05/01/2024 10:06 AM EST TC to pt. Initial RADIOLOGY PHYSICIAN ASSISTANT NV scheduled for 06/17/24 @ 3:15pm @ [facility]. * Telephone Encounter - Jose Lemus - 05/01/2024 9:24 AM EST TC from pt requesting medication refill. Medications needing refill : clonazePAM (KlonoPIN) 0.5 MG tablet To be sent to: [facility]/pharmacy #[id number] [facility] - [address] documented in this encounter Plan of Treatment Upcoming Encounters Date Type Department Care Team (Late st Contact Info) Description 04/14/2025 3:15 PM EST Clinical Support [facility] MED & PEDS 505 [facility] [address] Geraldine Oliveira RN 505 [place] [address] documented as of this encounter Visit Diagnoses Not on filedocumented in this encounter Additional Health Concerns Assessment Noted Time PHQ-9 Depression Total Score: 7 08/05/19 24 9:56 AM EDT documented as of this encounter Care Teams Photographers' Model Relationship Specialty Start Date End Date Glo Zaidi MD [address] [place] [address] PCP - General Family Medicine 12/08/14 documented as of this encounter
--- OUTSIDE RECORDS SUMMARY | 2024-12-25 16:38 | XMS_ITS | Clinical Summary ---
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 PM EDT Narrative [facility] - 10/08/2024 5:41 PM EDT Urine Glo Zaidi MD LAB MICROBIOLOGY - GENERAL ORDER KAUSHIK Final Result Performing Organization Address City/[facility]/ZIP Co de Phone Number [facility] [address] [place] [phone] * Hepatitis B surface antigen, EIA (10/08/2024 1:03 PM EDT) Pathologist [facility] Hepatitis B Surface Ag Negative Negative [facility] Blood Venous blood specimen / Unknown 10/08/2024 1:03 PM EDT 10/08/2024 4:05 PM EDT Glo Zaidi MD LAB BLOOD ORDERABLES Final Resul t Performing Organization Address [facility]/ZIP Co de Phone Number [facility] [address] [place] [phone] * HIV-1/2 Antigen and Antibodies, Fourth Generation, with Reflexes (10/08/2024 1:03 PM EDT) Pathologist [facility] HIV AB/AG Nonreactive Nonreactive [facility] Comment:HIV-1 p24 Ag and/or HIV-1/HIV-2 Ab not detected.A test result that is nonreactive does not exclude thepossibility of exposure to or infection with HIV-1 and/orHIV-2. Nonreactive results in this assay for individualswith prior exposure to HIV-1 and/or HIV-2 may be due toantigen and antibody levels that are below the limit ofdetection of this assay.The [employer] HIV Ag/Ab Combo assay result andsupplemental assay results should be interpreted inconjunction with the patient's clinical presentation,history and other laboratory results. If the results areinconsistent with clinical evidence, additional testing issuggested to confirm the result. Blood Venous blood specimen / Unknown 10/08/2024 1:03 PM EDT 10/08/2024 4:05 PM EDT Glo Zaidi MD LAB BLOOD ORDERABLES Final Resul t Performing Organization Address City/[facility]/ZIP Co de Phone Number [facility] [address] [place] [phone] * Hepatitis B Surface Antibody, Qualitative (10/08/2024 1:03 PM EDT) Pathologist [facility] ~Hepatitis B Surface Antibody REACTIVE Nonreactive [facility] Comment:REACTIVE: > 11.99 mI U/mL Blood Venous blood specimen / Unknown 10/08/2024 1:03 PM EDT 10/08/2024 4:05 PM EDT Glo Zaidi MD LAB BLOOD ORDERABLES Final Resul t Performing Organization Address [facility] Co de Phone Number [facility] [address] [place] [phone] * TSH (10/08/2024 1:03 PM EDT) [facility] Thyroid Stimulating Hormone 1.37 0.32 - 4.0 uIU/mL [facility] Comment:TSH 3rd Generation ( [facility]) Blood Venous blood specimen / Unknown 10/08/2024 1:03 PM EDT 10/08/2024 4:05 PM EDT Glo Zaidi MD LAB BLOOD ORDERABLES Final Resul t Performing Organization Address [facility] Co de Phone Number [facility] [address] [place] [phone] * Hemoglobin A1c (10/08/2024 1:03 PM EDT) Pathologist [facility] Hemoglobin A1c 4.8 <6.0 % [facility] Comment:Hemoglobin A1C Refer ence Range Adults: 4.8 - 6.0 % Non diabetic: < 6.0 % Goal: < 7.0 %Additional Action Suggested: > 8.0 %Note: Hemoglobin A1c results are invalid for patients with abnormal amounts of HbF. Blood transfusions may impact the HbA1c concentration in the patient sample. Estimated Average Glucose 91 mg/dL [facility] Comment:eAG = Estimated ave rage glucose which is %A1C expressed asaverage glucose, using the formula of the M0Z-TosysnxFmqnaqe Glucose study (ADAG), Diabetes Care, Vol.31,#8,2007 Blood Venous blood specimen / Unknown 10/08/2024 1:03 PM EDT 10/08/2024 4:05 PM EDT Glo Zaidi MD LAB BLOOD ORDERABLES Final Resul t Performing Organization Address City/[facility] Co de Phone Number [facility] [address] [place] [phone] * (ABNORMAL) Hepatic Function Panel (10/08/2024 1:03 PM EDT) Bilirubin, Total 0.6 0.0 - 1.0 mg/dL [facility] Bilirubin, Direct 0.2 0.0 - 0.5 mg/dL [facility] Aspartate Amino Transferase 58(H) 5 - 31 U/L [facility] Alanine Aminotransferase 71(H) 0 - 31 U/L [facility] Total Protein 7.3 6.5 - 8.0 g/dL [facility] Albumin Level 4.6 3.5 - 5.0 g/dL [facility] Alkaline Phosphatase 106 39 - 117 U/L [facility] Blood Venous blood specimen / Unknown 10/08/2024 1:03 PM EDT 10/08/2024 4:05 PM EDT Glo Zaidi MD LAB BLOOD ORDERABLES Final Resul t [facility] [address] [place] [phone] * BI Mammogram Screening Tomosynthesis Bilateral (09/15/2024 12:00 PM EDT) Anatomical Region Laterality Modality Breast Bilateral Mammography 09/15/2024 12:0 0 PM EDT Narrative 09/21/2024 9:21 PM EDT [facility] [address] [place] [address] Mammography Report Signed Patient: Shell Mobley MR#: [id number] : 1975 Acct:[id number] Age/Sex: 49 / F ADM Date: 09/15/24 Loc: [facility] Attending Dr: Glo Zaidi MD Ordering Physician: Glo Zaidi MD Results: 1Negative Date of Service: 09/15/24 Follow Up: 1 Year From [facility] Mammogram Procedure(s): MM tomosynthesis screening BI Accession Number(s): [id number] cc: Glo Zaidi MD EXAMINATION: MM SCREENING DIGITAL BREAST TOMOSYNTHESIS, BILATERAL CLINICAL INFORMATION: Screening. Asymptomatic. COMPARISON: Mammography: Comparison is made with available priors TECHNIQUE: Digital breast mammography with tomosynthesis is performed in both the craniocaudal and mediolateral oblique views along with computer-aided detection (CAD). FINDINGS: There are scattered areas of fibroglandular [...] target due date for their next mammogram. Electronically signed by: Amie Everett DO 09/21/2024 09:18 PM EDT Dictated By: Amie Everett DO Signed By: <Electronically signed by Amie Everett DO in OV> 09/21/242117 DD/ 1200 TD/TT: 09/15/24 1210 Cooperative Extension Agent: Procedure Note Donotuseinterpreter, Image - [facility] [address] [place] [address] Mammography Report Signed Patient: Shell Mobley [facility]#: [id number] : 1975Acct:[id number] Age/Sex: 49 / FADM Date: 09/15/24 Loc: HO.MAMMO Attending Dr: Glo Zaidi MD Ordering Physician: Glo Zaidi MDResults: 1Negative Date of Service: 09/15/24Follow Up: 1 Year From Orig inal Mammogram Procedure(s): MM tomosynthesis screening BI Accession Number(s): [id number] cc: Glo Zaidi MD EXAMINATION: MM SCREENING DIGITAL BREAST TOMOSYNTHESIS, BILATERAL CLINICAL INFORMATION: Screening. Asymptomatic. COMPARISON: Mammography: Comparison is made with available priors TECHNIQUE: Digital breast mammography with tomosynthesis is performed in both the craniocaudal and mediolateral oblique views along with computer-aided detection (CAD). FINDINGS: There are scattered areas of fibroglandular [...] target due date for their next mammogram. Electronically signed by: Amie Everett DO 09/21/2024 09:18 PM EDT Dictated By: Amie Everett DO Signed By: <Electronically signed by Amie Everett DO in OV> 09/21/242117 DD/ 1200 TD/TT: 09/15/24 1210 Cooperative Extension Agent: Glo Zaidi MD IMG BI PROCEDURES Edited Result - Final * Hm Colonoscopy (12/16/2020) Colonoscopy Normal Normal Historical Provider HEALTH MAINTENANCE Final Result * HPV mRNA E6/E7 (02/20/2018 3:26 PM EDT) HPV mRNA E6/E7 Not Detected NOT DETECTED [facility] Comment: This test was performed using the APTIMA(R) HPV Assay ([employer] This assay detects E6/E7 viral messenger RNA (mRNA) from 14 high-risk HPV types (16,18,31,33,35,39,45,51, 52,56,58,59,66,68). For additional information please refer to: http://education.[employer]/faq/FIP918v6 (This link is being provided for informational/ educational purposes only.) The analytical performance characteristics of this assay have been determined by [employer] [place]. The modifications have not been cleared or approved by the FDA. This assay has been validated pursuant to the CLIA regulations and is used for clinical purposes. [facility], [employer] [facility], [address] [place] [address] Benny Huynh M.D., Ph.D., Director of Laboratories , CLIA [id number] Please note: Effective 01/09/2016, HPV testing will be performed using [employer]'s APTIMA test which targets mRNA. Detecting mRNA instead of DNA, as in older methods, offers significant improvements in specificity. 02/20/2018 3:26 PM EDT Historical Provider HISTORICAL/NON ORDERABLE LABS Final Result [facility] [address] from Last 3 Months or Most Recently Relevant to Health Maintenance Insurance , [address] [place] [phone] Care Teams Union Contract Representative Relationship Specialty Start Date End Date Glo Zaidi MD [address] [place] [phone] PCP - General Family Medicine 12/08/14
[2024-12-29 09:46] LABS: Alphahydroxymidazolam,GCMS Ur NEGATIVE; Alphahydroxytriazolam, GCMS Ur NEGATIVE; Alprazolam, GCMS Urine NEGATIVE
[2024-12-29 09:47] LABS: Aminoclonazepam, GCMS Urine 291; Flurazepam Metabolite,GCMS Ur NEGATIVE; Lorazepam GCMS Urine NEGATIVE
[2024-12-29 09:48] LABS: Nordiazepam, GCMS Urine NEGATIVE; Oxazepam, GCMS Urine NEGATIVE; Temazepam, GCMS Urine NEGATIVE
== END 2024-12-25 16:36 | disposition home or self-care (01) ==
LOC: HO.HHCLNP 16:35
PROVIDERS: Visit Provider Family Medicine
DX: Z02.83 Encounter for blood-alcohol and blood-drug test (principal); Z79.899 Other long term (current) drug therapy
CPT/HCPCS: 80346